=== PATIENT | female | born 1950 | race American Indian/Alaskan Native ===

== ENCOUNTER 2017-04-13 12:53 | Outpatient (CLI) | payer BC ==
--- NOTE | 2017-04-13 16:02 | Mammography Report ---
BONE DENSITY STUDY: DEFINITIONS: BMD = Bone Mineral Density T-score = BMD related to mean peak bone mass of young adult (mean expressed in Standard Deviation) Z-score = Age matched BMD expressed in SD World Health Organization (WHO) Diagnostic Criteria Normal T-score > -1 SD Osteopenia T-score between -1 and -2.4 SD Osteoporosis T-score -2.5 SD or below FINDINGS: The weighted average BMD of lumbar spine L1-L4 is 1.135 with a T-score of -0.1. The weighted average BMD of hip is 1.360 with a T-score of 2.1. IMPRESSION: The patient's T-score is diagnostic for normal bone density and low relative risk for fracture. NOTE: BMD is not the only risk factor for fracture; also consider factors such as the patient's age, risk of falling, previous osteoporotic fracture, family history of osteoporotic fractures, current smoker, and low body weight. Robertson's triangle is a region of interest in femur, predominantly of trabecular bone. It is not a true anatomic site, and [facility] does not recommend its use clinically.
--- NOTE | 2017-04-13 16:06 | Mammography Report ---
BILATERAL MAMMOGRAM with CAD: HISTORY:Cancer screening. Comparison study is dated March 30, 2016. FINDINGS: The breasts are almost entirely fat (<25% glandular). No mass, distortion, suspicious calcification, or skin change is seen. 2 nodular asymmetries in the upper-outer right breast are stable and have benign features. IMPRESSION: Negative mammogram. There is no mammographic evidence of malignancy. RECOMMENDATION: Follow-up per ACS guidelines. BI-RADS CATEGORY: 1 = Negative ACR BI-RADS MAMMOGRAPHIC CODES: 0 = Needs additional imaging evaluation; 1 = Negative; 2 = Benign; 3 = Probably benign; 4 = Suspicious; 5 = Malignant; 6 = Known biopsy-proven malignancy COMMENT: 1. Dense breast tissue, i.e., adenosis, fibrocystic changes, etc., may obscure an underlying neoplasm. 2. Approximately 10% of cancers are not detected with mammography. 3. A negative mammography report should not delay biopsy if a clinically suspicious mass is present. COMMENT: Patient follow-up letters are generated in [facility].
== END 2017-04-13 12:54 | disposition home or self-care (01) ==
LOC: SPVWC 12:53
PROVIDERS: ATTEND Internal Medicine
DX: Z12.31 Encounter for screening mammogram for malignant neoplasm of breast (principal); Z13.820 Encounter for screening for osteoporosis
CPT/HCPCS: 77080; G0202; 77067

== ENCOUNTER 2018-03-05 10:17 | Emergency (ER) | payer BC ==
[2018-03-05 10:35] VITALS: BP 139/71
[2018-03-05] MEDS ORDERED: TORADOL IM ONE (10:47)
--- NOTE | 2018-03-05 10:51 | Emergency Department Report ---
ED Fall HPI - General Chief Complaint: Fall Stated Complaint: FALL Time Seen by Provider: 03/05/18 10:46 Source: patient Mode of arrival: Ambulatory - History of Present Illness Initial Comments: Patient reports a ground level fall while walking in the hallway. She complains of right knee and lower back pain. She denies any dizziness or LOC prior to or after the fall MD Complaint: fall Onset/Timin -: minutes(s) Fall From: standing When Fall Occurred: just prior to arrival Fall Witnessed: yes, by bystander Place Fall Occurred: work Loss of Consciousness: none Prolonged Down Time?: no Symptoms Prior to Fall: none Location: back, other (right knee) Location - Extremities: Right: Knee Severity: moderate Severity scale (0 -10): 6 Quality: aching Context: tripped/slipped Associated Symptoms: denies. denies: headache, neck pain, numbness, weakness, chest paint, shortness of breath, abdominal pain, hematuria, unable to walk, lightheaded, vertigo, confusion - Related Data Home Medications Medication Instructions Recorded Confirmed Last Taken ALBUTEROL NEB's [Proventil 0.083% 10/03/15 10/03/15 NEBS] NIFEdipine [NIFEdipine ER] 10/03/15 10/03/15 ProAir HFA Inhaler 10/03/15 10/02/15 Triamterene/Hydrochlorothiazid 10/03/15 10/02/15 [Triamterene-Hctz 37.5-25 mg Tb] ZyrTEC 10/03/15 10/02/15 Previous Rx's Medication Instructions Recorded Last Taken Type Azithromycin [Zithromax Z-SOILA] 1 dose PO DAILY 5 Days tab 10/03/15 Unknown Rx Benzonatate [Tessalon Perles] 100 mg PO Q8HR PRN #20 capsule 10/03/15 Unknown Rx HYDROcodone/APAP 5-325 [[place] 1 each PO Q6HR PRN #20 tablet 10/03/15 Unknown Rx 5/325] Ibuprofen [Motrin] 600 mg PO Q8H PRN #30 tablet 10/03/15 Unknown Rx Prednisone [predniSONE 10 mg 10 mg PO .TAPER #1 tab.ds.pk 10/03/15 Unknown Rx (6-Day Pack, 21 Tabs)] Allergies Allergy/AdvReac Type Severity Reaction Status Date / Time No Known Allergies Allergy Unverified 10/03/15 09:42 ED Review of Systems ROS: Stated complaint: FALL Other details as noted in HPI Constitutional: denies: chills, fever Eyes: denies: eye pain, eye discharge, vision change ENT: denies: ear pain, throat pain Respiratory: denies: cough, shortness of breath, wheezing Cardiovascular: denies: chest pain, palpitations Endocrine: no symptoms reported Gastrointestinal: denies: abdominal pain, nausea, diarrhea Genitourinary: denies: urgency, dysuria, discharge Musculoskeletal: back pain, arthralgia (right knee). denies: joint swelling Skin: denies: rash, lesions Neurological: denies: headache, weakness, paresthesias Psychiatric: denies: anxiety, depression Hematological/Lymphatic: denies: easy bleeding, easy bruising ED Past Medical Hx - Past Medical History Hx Hypertension: Yes Hx Asthma: Yes Additional medical history: allergies - Surgical History Additional Surgical History: Ovarian cyst removed, Right foot surgery - Social History Smoking Status: Never Smoker Substance Use Type: None - Medications Home Medications: Home Medications Medication Instructions Recorded Confirmed Last Taken Type ALBUTEROL NEB's [Proventil 0.083% 10/03/15 10/03/15 History NEBS] Azithromycin [Zithromax Z-SOILA] 1 dose PO DAILY 5 Days tab 10/03/15 Unknown Rx Benzonatate [Tessalon Perles] 100 mg PO Q8HR PRN #20 capsule 10/03/15 Unknown Rx HYDROcodone/APAP 5-325 [[place] 1 each PO Q6HR PRN #20 tablet 10/03/15 Unknown Rx 5/325] Ibuprofen [Motrin] 600 mg PO Q8H PRN #30 tablet 10/03/15 Unknown Rx NIFEdipine [NIFEdipine ER] 10/03/15 10/03/15 History Prednisone [predniSONE 10 mg 10 mg PO .TAPER #1 tab.ds.pk 10/03/15 Unknown Rx (6-Day Pack, 21 Tabs)] ProAir HFA Inhaler 10/03/15 10/02/15 History Triamterene/Hydrochlorothiazid 10/03/15 10/02/15 History [Triamterene-Hctz 37.5-25 mg Tb] ZyrTEC 10/03/15 10/02/15 History ED Physical Exam - General Limitations: No Limitations General appearance: alert, in no apparent distress - Head Head exam: Present: atraumatic, normocephalic - Eye Eye exam: Present: normal appearance - Neck Neck exam: Present: normal inspection, full ROM. Absent: tenderness, meningismus, lymphadenopathy, thyromegaly - Respiratory Respiratory exam: Present: normal lung sounds bilaterally. Absent: respiratory distress, wheezes, rales, rhonchi, stridor, chest wall tenderness, accessory muscle use, decreased breath sounds, prolonged expiratory - Cardiovascular Cardiovascular Exam: Present: regular rate, normal rhythm. Absent: systolic murmur, diastolic murmur, rubs, gallop - GI/Abdominal GI/Abdominal exam: Present: soft, normal bowel sounds - Extremities Exam Extremities exam: Present: normal inspection - Expanded Lower Extremity Exam Right Hip exam: Present: normal inspection, full ROM Upper Leg exam: Present: normal inspection, full ROM Knee exam: Present: full ROM, tenderness (medial and lateral), full knee extension. Absent: swelling, abrasion, laceration, ecchymosis, deformity, crepidus, dislocation, erythema, effusion, pain w/ pronation/supination, posterior draw sign, pain/laxity with valgus, pain/laxity with varus Lower Leg exam: Present: normal inspection, full ROM Ankle exam: Present: normal inspection, full ROM Foot/Toe exam: Present: normal inspection, full ROM Neuro vascular tendon exam: Present: no vascular compromise. Absent: pulse deficit, abnormal cap refill, motor deficit, sensory deficit, tendon deficit, extremity cold to touch, pallor, abnormal 2-point discrimination, decreased fine /light touch, foot drop, peroneal nerve deficit, significant pain with passive ROM of distal joint Gait: Positive: observed and normal - Back Exam Back exam: Present: normal inspection, full ROM, tenderness (L & S spine), vertebral tenderness. Absent: CVA tenderness (R), CVA tenderness (L), muscle spasm, paraspinal tenderness, rash noted - Neurological Exam Neurological exam: Present: alert, oriented X3, CN II-XII intact, normal gait, reflexes normal. Absent: motor sensory deficit - Psychiatric Psychiatric exam: Present: normal affect, normal mood - Skin Skin exam: Present: warm, dry, intact, normal color. Absent: rash ED Course Vital Signs 03/05/18 03/05/18 10:34 10:54 Temperature 97.7 F Pulse Rate 69 Respiratory 17 18 Rate Blood Pressure 139/71 [Left] O2 Sat by Pulse 97 Oximetry - Reevaluation(s) Reevaluation #1: 03/05/18 10:52 analgesic and imaging studies ordered ED Medical Decision Making - Lab Data Vital Signs 03/05/18 03/05/18 10:34 10:54 Temperature 97.7 F Pulse Rate 69 Respiratory 17 18 Rate Blood Pressure 139/71 [Left] O2 Sat by Pulse 97 Oximetry - Radiology Data Radiology results: image reviewed LUMBOSACRAL SPINE, 3 VIEWS: History: Fall Findings: The vertebral bodies, disk spaces and posterior elements are intact. No compression deformity or malalignment. Multilevel degenerative changes are noted. The SI joints are symmetric and unremarkable. Impression: Lumbar spondylosis. RIGHT KNEE, 3 views: History: Fall. The bony architecture is intact without evidence of fracture or dislocation. Osteoarthritis is noted. No significant soft tissue abnormality is seen. IMPRESSION: Osteoarthritis. - Medical Decision Making During the course of ED, Toradol injection and radiology studies were ordered. The imaging studies revealed lumbar spondylosis and right knee osteoarthritis. The patient reports adequate pain control after medication was given in the ED. She was sent home with instruction to take over the counter Ibuprofen 600 mg as directed for pain and follow up with the selective referral given at discharge, she verbalized understanding - Differential Diagnosis Fall, Right Knee Pain, Low Back Pain Critical care attestation.: If time is entered above; I have spent that time in minutes in the direct care of this critically ill patient, excluding procedure time. ED Disposition Clinical Impression: Fall Qualifiers: Encounter type: initial encounter Qualified Code(s): W19.XXXA - Unspecified fall, initial encounter Knee pain, right Qualifiers: Chronicity: acute Qualified Code(s): M25.561 - Pain in right knee Back pain Qualifiers: Back pain location: low back pain Chronicity: acute Back pain laterality: midline Sciatica presence: without sciatica Qualified Code(s): M54.5 - Low back pain Disposition: - TO HOME OR SELFCARE Is pt being admited?: No Does the pt Need Aspirin: No Condition: Stable Instructions: Arthralgia (ED), Back Pain (ED) Additional Instructions: Follow up with the selective referral given at discharge. Return back to the ED for worsening symptoms Referrals: PRIMARY CAREMD [Primary Care Provider] - 3-5 Days SURINDER HOLCOMB MD [Staff Physician] - 3-5 Days Forms: Work/School Release Form(ED) Time of Disposition: 12:57
--- NOTE | 2018-03-06 07:51 | XRay Report ---
LUMBOSACRAL SPINE, 3 VIEWS: History: Fall Findings: The vertebral bodies, disk spaces and posterior elements are intact. No compression deformity or malalignment. Multilevel degenerative changes are noted. The SI joints are symmetric and unremarkable. Impression: Lumbar spondylosis.
--- NOTE | 2018-03-06 07:51 | XRay Report ---
RIGHT KNEE, 3 views: History: Fall. The bony architecture is intact without evidence of fracture or dislocation. Osteoarthritis is noted. No significant soft tissue abnormality is seen. IMPRESSION: Osteoarthritis.
== END 2018-03-05 13:04 | disposition home or self-care (01) ==
LOC: ED 10:17
DX: M25.561 Pain in right knee (principal); M54.5 Low back pain; I10 Essential (primary) hypertension; J45.909 Unspecified asthma, uncomplicated; W01.0XXA Fall on same level from slipping, tripping and stumbling without subsequent striking against object, initial encounter; Y93.89 Activity, other specified; Y92.89 Other specified places as the place of occurrence of the external cause; Y99.8 Other external cause status
CPT/HCPCS: 72100; 73562; 96372; 99283; J1885

== ENCOUNTER 2018-11-08 07:05 | Day surgery (SDC) | payer BC ==
[~2018-11-08 07:05] MED LIST: DEPO-Medrol INTRA-ARTI ONE; MARCAINE 0.5% INFILTRATI ONE; XYLOCAINE 2% INFILTRATI ONE
[2018-11-08] MEDS ORDERED: DEPO-Medrol ONE (07:16)
[2018-11-08] MEDS ORDERED: XYLOCAINE 1% 20 mL ONE (07:16)
[2018-11-08] MEDS ORDERED: MARCAINE 0.5% INFILTRATI ONE ×3 (07:17→08:19)
[2018-11-08] MEDS ORDERED: MARCAINE 0.25% INFILTRATI ONE (07:19)
[2018-11-08 08:06] VITALS: BP 162/79
[2018-11-08] MEDS ORDERED: XYLOCAINE 2% INFILTRATI ONE (08:19)
--- NOTE | 2018-11-08 17:30 | Procedure Note ---
Date of procedure: 11/08/18 Pre-op diagnosis: right knee pain Post-op diagnosis: same Procedure: Right Geniculate Nerve Block under C-arm fluroscopy procedure The patient taken to the radiology fluroscopy suite where he was place on the table supine with padded triangular pad placed along the potileal fossa. The right knee prepped and draped in usual sterile fashion. 22-gauge spinal needle used to locate areas for injection, the medial and lateral supracondylar ridges as well as the medial border of the proximal tibia. These areas were anesthized using lidocaine 1% followed by placement of spinal needle near the medial, and lateral geniculate nerves. A mixture of marcaine and lidocaine injected into the deeper structures. There were no complications noted and he tolerated well. Anesthesia: local Surgeon: SURINDER HOLCOMB Estimated blood loss: none Pathology: none Condition: stable Disposition: observation
--- NOTE | 2018-11-09 07:31 | XRay Report ---
RIGHT KNEE, 2 VIEWS History: Right knee pain. Findings: Fluoroscopy was provided by radiology during an orthopedic procedure. 6 images of the right knee are presented demonstrating needle placement for injection. The bony structures are intact. Mild degenerative changes are suspected in the medial compartment and patellofemoral space. No bony lesion or fracture. Please correlate with the procedural report as needed. Impression: Needle placement for injection. Mild osteoarthritis.
== END 2018-11-08 08:40 | disposition home or self-care (01) ==
LOC: OR 07:05
PROVIDERS: ATTEND Orthopaedic Surgery
DX: M17.11 Unilateral primary osteoarthritis, right knee (principal); I10 Essential (primary) hypertension; K21.9 Gastro-esophageal reflux disease without esophagitis; Z79.899 Other long term (current) drug therapy; Z87.891 Personal history of nicotine dependence; Z98.49 Cataract extraction status, unspecified eye; Z72.89 Other problems related to lifestyle; Z98.890 Other specified postprocedural states
CPT/HCPCS: 64450; 73560; J1030

== ENCOUNTER 2019-01-17 07:37 | Day surgery (SDC) | payer BC, MEDICARE ==
[~2019-01-17 07:37] MED LIST changes: -DEPO-Medrol INTRA-ARTI ONE; +DEPO-Medrol ONE; +XYLOCAINE 1% 20 mL ONE; -XYLOCAINE 2% INFILTRATI ONE
--- NOTE | 2019-01-17 08:51 | Anesthesia Day of Surgery ---
Anesthesia Day of Surgery - Day of Surgery Patient Examined: Yes Patient H&P Reviewed: Yes Patient is NPO: Yes
--- NOTE | 2019-01-17 08:53 | Anesthesia Consultation ---
Anesthesia Consult and Med Hx Date of service: 01/17/19 - Airway Anesthetic Teeth Evaluation: Good ROM Head & Neck: Adequate Mental/Hyoid Distance: Adequate Mallampati Class: Class II Intubation Access Assessment: Good - Pre-Operative Health Status ASA Pre-Surgery Classification: ASA2 Proposed Anesthetic Plan: General (MAC; GA if needed), MAC - Pulmonary Hx Smoking: Yes (STOPPED 1992) Hx Asthma: Yes (INHALER PRN) Hx Sleep Apnea: No (RAMIREZ PRE SCREEN HIGH RISK) - Cardiovascular System Hx Hypertension: Yes - Central Nervous System Hx Back Pain: Yes Hx Psychiatric Problems: No - Gastrointestinal Hx Gastroesophageal Reflux Disease: Yes (Dietary-occasional; no RX) - Other Systems Hx Alcohol Use: Yes (OCC MIXED DRINK) Hx Cancer: No
[2019-01-17] MEDS ORDERED: LACTATED RINGERS 1,000 ML IV SCH (09:00)
[2019-01-17] MEDS ORDERED: LACTATED RINGERS 1,000 ML ONE (09:22)
[2019-01-17] MEDS ORDERED: SUBLIMAZE IV PRN (09:30)
[2019-01-17] MEDS ORDERED: ZOFRAN IV PRN (09:30)
[2019-01-17] MEDS ORDERED: DILAUDID ONE (09:54)
[2019-01-17] MEDS ORDERED: XYLOCAINE MPF 2% ONE (09:54)
[2019-01-17] MEDS ORDERED: VERSED ONE (09:54)
[2019-01-17] MEDS ORDERED: DIPRIVAN 10 MG/ML IV ONE ×2 (09:54→10:30)
[2019-01-17] MEDS ORDERED: DEPO-Medrol INTRA-ARTI ONE (10:10)
[2019-01-17] MEDS ORDERED: XYLOCAINE 1% 20 mL INFILTRATI ONE (10:10)
[2019-01-17] MEDS ORDERED: MARCAINE 0.5% INFILTRATI ONE (10:10)
--- NOTE | 2019-01-17 10:43 | Procedure Note ---
Date of procedure: 01/17/19 Pre-op diagnosis: chronic right knee pain Post-op diagnosis: same Procedure: Geniculate nerve radiofrequency ablation right knee Procedure The patient was brought to the OR and placed in the OR table supine position patient was Given IV fall and was masked the procedure following this the patient's right knee was prepped and draped in the routine sterile manner. A timeout procedure was done to identify the patient and the correct operative site. Under C-arm visualization the skin was anesthetized with the 1% lidocaine at both the medial and lateral suprapatellar regions as well as the proximal portion of the medial tibial metaphysis. Following this the the introducers radiofrequency ablation introducer probes were inserted into the distal femoral metaphysis close to the bone and midway along the sagittal plane as well as along the proximal tibial metaphysis to be appropriate place simultaneously following this following this the probe were checked for full motor nerve function there did not appear to be any next the radiofrequency ablator was turned on and the nerves were ablated to a temperature of 60C for approximately 2-1/2 minutes each. A mixture of Depo-Medrol and lidocaine was then injected into each location to help with postoperative pain and inflammation. The patient tolerated the procedure there were no complications he was then taken to postanesthesia recovery in a stable condition. Surgeon: SURINDER HOLCOMB Estimated blood loss: minimal Pathology: none Condition: stable Disposition: PACU
[2019-01-17] MEDS ORDERED: PROVENTIL IH ONE (11:04)
[2019-01-17] MEDS ORDERED: PROVENTIL IH PRN (12:00)
[2019-01-17 12:21] VITALS: BP 143/73
--- NOTE | 2019-01-17 13:25 | Post Anesthesia Evaluation ---
- Post Anesthesia Evaluation Patient Participated: Yes Airway Patent: Yes Stable Respiratory Function: Yes Nausea/Vomiting: No Temp > 96.8F: Yes Pain Manageable: Yes Adequeate Hydration: Yes Anesthesia Complications: No Block Receding Appropriately: Not Applicable Patient on Ventilator: No
--- NOTE | 2019-01-17 15:59 | XRay Report ---
XR knee 1-2V RT INDICATION / CLINICAL INFORMATION: RT KNEE PAIN. INTRAOPERATIVE. COMPARISON: None available. FINDINGS: There are 3 metallic needles overlying the distal femoral metaphysis laterally, medially and anterior ly. A single metallic needle overlies the proximal tibial metaphysis medially. There are mild degener ative changes. Fluoroscopy time: 12 seconds. Fluoroscopic images: 2. Signer Name: Devang Rouse MD Signed: 01/17/2019 3:55 PM Workstation Name: [id number]
== END 2019-01-17 07:38 | disposition home or self-care (01) ==
LOC: OR 07:37
PROVIDERS: ATTEND Orthopaedic Surgery
DX: M17.11 Unilateral primary osteoarthritis, right knee (principal); I10 Essential (primary) hypertension; J45.909 Unspecified asthma, uncomplicated; K21.9 Gastro-esophageal reflux disease without esophagitis; Z98.890 Other specified postprocedural states; Z87.891 Personal history of nicotine dependence; Z79.899 Other long term (current) drug therapy; Z98.42 Cataract extraction status, left eye; Z72.89 Other problems related to lifestyle; Z86.2 Personal history of diseases of the blood and blood-forming organs and certain disorders involving the immune mechanism
CPT/HCPCS: 36415; 64640; 73560; 84132; A4649; J1030; J1170; J2250; J2704; J3010; J7120

== ENCOUNTER 2019-04-24 13:56 | Outpatient (CLI) | payer BC, MEDICARE ==
--- NOTE | 2019-04-24 16:58 | XRay Report ---
Views of the right knee INDICATION / CLINICAL INFORMATION: PAIN IN RIGHT KNEE. COMPARISON: None available. FINDINGS: BONES/JOINT(S): No acute fracture or subluxation. Moderate tricompartmental DJD with joint space loss and marginal osteophyte formation. Moderate joint effusion. SOFT TISSUES: No significant abnormality. ADDITIONAL FINDINGS: None. Signer Name: Anselmo Stanford MD Signed: 04/24/2019 4:54 PM Workstation Name: [id number]
--- NOTE | 2019-04-25 11:05 | Mammography Report ---
DIGITAL SCREENING MAMMOGRAM WITH CAD, 04/24/2019 INDICATION: Routine screening mammography. TECHNIQUE: Digital bilateral 2D mammography was obtained in the craniocaudal and mediolateral obliq ue projections. This examination was interpreted with the benefit of Computer-Aided Detection analysi s. COMPARISON: 04/25/2018 FINDINGS: Breast Density: The breasts are almost entirely fatty. There is no evidence of dominant mass, suspicious calcifications or architectural distortion in eithe r breast. IMPRESSION: No mammographic evidence of malignancy. Follow up recommendation: Routine yearly BI-RADS Category 1: Negative. A "normal" or negative report should not discourage follow up or biopsy of a clinically significant f inding. A written summary of these findings will be mailed to the patient. The patient will be entered into a mammography reporting system which will generate a reminder letter for the patient's next appointmen t at the appropriate interval. The [employer] recommends yearly mammograms starting at age 40 and continuing as l quentin as a woman is in good health. Breast MRI is recommended for women with an approximate 20-25% or greater lifetime risk of breast cancer, including women with a strong family history of breast or ova andreia cancer or who have been treated for Hodgkin's disease. Signer Name: Meir Hernandez MD Signed: 04/25/2019 11:01 AM Workstation Name: [id number]
== END 2019-04-24 13:57 | disposition home or self-care (01) ==
LOC: MAMMO 13:56 → XRAY 13:56
PROVIDERS: ATTEND Orthopaedic Surgery
DX: M17.11 Unilateral primary osteoarthritis, right knee (principal); M25.761 Osteophyte, right knee; Z12.31 Encounter for screening mammogram for malignant neoplasm of breast; I10 Essential (primary) hypertension; J45.909 Unspecified asthma, uncomplicated; K21.9 Gastro-esophageal reflux disease without esophagitis; M19.90 Unspecified osteoarthritis, unspecified site; Z87.891 Personal history of nicotine dependence; Z98.890 Other specified postprocedural states; Z90.721 Acquired absence of ovaries, unilateral
CPT/HCPCS: 77067

== ENCOUNTER 2019-07-02 15:01 | Emergency (ER) | payer BC, MEDICARE ==
[2019-07-02] MEDS ORDERED: ALBUTEROL 2.5 MG/3 ML NEBU IH ONE (15:09)
[2019-07-02] MEDS ORDERED: predniSONE 20 MG TAB PO ONE (15:09)
--- NOTE | 2019-07-02 15:09 | Emergency Department Report ---
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 VSS. ED Review of Systems ROS: Stated complaint: NHAN Other details as noted in HPI Comment: All other systems reviewed and negative ED Past Medical Hx - Past Medical History Previous Medical History?: Yes Hx Hypertension: Yes Hx GERD: Yes Hx Arthritis: ([place]ICA KNEES) Hx Asthma: Yes (INHALER PRN) Hx HIV: No Additional medical history: allergies - Surgical History Past Surgical History?: Yes Additional Surgical History: Ovarian cyst removed, Right foot surgery - Family History Family history: no significant - Social History Smoking Status: Former Smoker - Medications Home Medications: Home Medications Medication Instructions Recorded Confirmed Last Taken Type ALBUTEROL NEB's [Proventil 0.083% 1 dose INHALATION PRN PRN 10/03/15 01/17/19 01/16/19 21:00 History NEBS] NIFEdipine [NIFEdipine ER] 90 mg PO DAILY 10/03/15 01/17/19 01/17/19 09:00 History ProAir HFA Inhaler 2 puff INHALATION PRN PRN 10/03/15 01/08/19 10/02/15 History Cetirizine HCl [ZyrTEC 10mg cap] 10 mg PO DAILY 11/05/18 01/17/19 01/16/19 09:00 History Ibuprofen [Motrin] 800 mg PO PRN PRN 11/05/18 01/17/19 01/14/19 09:00 History Triamterene [Dyrenium] 50 mg PO DAILY 11/05/18 01/17/19 01/16/19 09:00 History HYDROcodone/APAP 7.5-325 [[place] 1 each PO Q6HR PRN #15 tablet 01/17/19 Unknown Rx 7.5-325 mg TAB] predniSONE [Deltasone] 20 mg PO DAILY #5 tablet 07/02/19 Unknown Rx Minor Respiratory Exam - Exam General: Vital signs noted. No distress. Alert and acting appropriately. HEENT: Yes Moist Mucous Membranes, No Pharyngeal Erythema, No Pharyngeal Exudates, No Rhinorrhea, No Conjuctival Injection, No Frontal Tenderness, No Maxillary Tenderness Ear: Neither TM Bulge, Neither TM Erythema, Neither EAC Pain, Neither EAC Discharge Neck: Yes Supple, No Adenopathy Lungs: Yes Good Air Exchange, Yes Wheezes, No Ronchi, No Stridor, No Cough, No Labored Respirations, No Retractions, No Use of Accessory Muscles, No Other Abnormal Lung Sounds Heart: Yes Regular, No Murmur Abdomen: Yes Normal Bowel Sounds, No Tenderness, No Peritoneal Signs Skin: No Rash, No Edema Neurologic: Alert and oriented, no deficits. Musculoskeletal: Unremarkable. ED Medical Decision Making - Medical Decision Making DUONEB AND PREDNISONE WITH CLEARING OF WHEEZING PT AMBULATORY WO SOB P RT DC HOME Vital Signs 07/02/19 15:08 Temperature 98.8 F Pulse Rate 104 H Respiratory 20 Rate Blood Pressure 166/78 O2 Sat by Pulse 95 Oximetry Critical care attestation.: If time is entered above; I have spent that time in minutes in the direct care of this critically ill patient, excluding procedure time. ED Disposition Clinical Impression: Asthma with acute exacerbation Disposition: DC-01 TO HOME OR SELFCARE Is pt being admited?: No Does the pt Need Aspirin: No Condition: Stable Instructions: Asthma (ED) Prescriptions: predniSONE [Deltasone] 20 mg PO DAILY #5 tablet Time of Disposition: 15:45
[2019-07-02 15:11] VITALS: BP 166/78
== END 2019-07-03 16:50 | disposition home or self-care (01) ==
LOC: ED 15:01
DX: J45.901 Unspecified asthma with (acute) exacerbation (principal); I10 Essential (primary) hypertension; K21.9 Gastro-esophageal reflux disease without esophagitis
CPT/HCPCS: 99282; J7512

== ENCOUNTER 2020-03-21 11:05 | Emergency (ER) | payer BC, MEDICARE ==
[2020-03-21] MEDS ORDERED: ALBUTEROL 2.5 MG/3 ML NEBU IH ONE (11:13)
[2020-03-21] MEDS ORDERED: methylPREDNISolone Sod Succinate 125 MG/2 ML INJ IV ONE (11:13)
[2020-03-21] MEDS ORDERED: ONDANSETRON 4 MG/2 ML INJ IV ONE (11:13)
[2020-03-21] MEDS ORDERED: IPRATROPIUM 0.02% NEBU 2.5 ML IH ONE (11:13)
[2020-03-21 11:34] LABS: Basophils % (Auto) 0.4 % (0.0-1.8); Eosinophils # (Auto) 0.1 K/mm3 (0.0-0.4); Eosinophils % (Auto) 2.3 % (0.0-4.3); Hematocrit 38.3 % (30.3-42.9); Hemoglobin 12.3 gm/dl (10.1-14.3); Lymphocytes # (Auto) 1.8 K/mm3 (1.2-5.4); Lymphocytes % (Auto) 28.2 % (13.4-35.0); Mean Corpuscular HGB Conc 32 % (30-34); Mean Corpuscular Volume 86 fl (79-97); Monocytes # (Auto) 0.6 K/mm3 (0.0-0.8); Monocytes % (Auto) 9.6 % (0.0-7.3); Platelet Count 202 K/mm3 (140-440); Red Blood Count 4.45 M/mm3 (3.65-5.03)
--- NOTE | 2020-03-21 11:50 | Emergency Department Report ---
ED Asthma HPI - General Chief Complaint: Adult Asthma Stated Complaint: NHAN Time Seen by Provider: 03/21/20 11:13 Source: patient Mode of arrival: Ambulatory Limitations: No Limitations - History of Present Illness Initial Comments: Patient is a 69-year-old F [place] female past medical history of hypertension and asthma who is presenting with asthma exacerbation. 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 She was given a bag elbow patients that needed to be locked up and are safe because it contained a weapon and drugs and she smells fumes which caused bronchospasm. Patient began to cough and had some wheezing. Patient was very short of breath and decided to check into the emergency department. Patient is denying any recent fevers chills nausea vomiting diarrhea body aches. - Related Data Home Medications Medication Instructions Recorded Confirmed Last Taken ALBUTEROL NEB's [Proventil 0.083% 1 dose INHALATION PRN PRN 10/03/15 01/17/19 01/16/19 21:00 NEBS] NIFEdipine [NIFEdipine ER] 90 mg PO DAILY 10/03/15 01/17/19 01/17/19 09:00 ProAir HFA Inhaler 2 puff INHALATION PRN PRN 10/03/15 01/08/19 10/02/15 Cetirizine HCl [ZyrTEC 10mg cap] 10 mg PO DAILY 11/05/18 01/17/19 01/16/19 09:00 Ibuprofen [Motrin] 800 mg PO PRN PRN 11/05/18 01/17/19 01/14/19 09:00 Triamterene [Dyrenium] 50 mg PO DAILY 11/05/18 01/17/19 01/16/19 09:00 Previous Rx's Medication Instructions Recorded Last Taken Type HYDROcodone/APAP 7.5-325 [[place] 1 each PO Q6HR PRN #15 tablet 01/17/19 Unknown Rx 7.5-325 mg TAB] predniSONE [Deltasone] 20 mg PO DAILY #5 tablet 07/02/19 Unknown Rx predniSONE [Deltasone] 20 mg PO QDAY #5 tab 03/21/20 Unknown Rx Allergies Allergy/AdvReac Type Severity Reaction Status Date / Time No Known Allergies Allergy Verified 11/05/18 12:22 ED Review of Systems ROS: Stated complaint: NHAN Other details as noted in HPI Comment: All other systems reviewed and negative ED Past Medical Hx - Past Medical History Hx Hypertension: Yes Hx GERD: Yes Hx Arthritis: (ERICA KNEES) Hx Asthma: Yes (INHALER PRN) Hx HIV: No Additional medical history: allergies - Surgical History Additional Surgical History: Ovarian cyst removed, Right foot surgery - Social History Smoking Status: Former Smoker - Medications Home Medications: Home Medications Medication Instructions Recorded Confirmed Last Taken Type ALBUTEROL NEB's [Proventil 0.083% 1 dose INHALATION PRN PRN 10/03/15 01/17/19 01/16/19 21:00 History NEBS] NIFEdipine [NIFEdipine ER] 90 mg PO DAILY 10/03/15 01/17/19 01/17/19 09:00 History ProAir HFA Inhaler 2 puff INHALATION PRN PRN 10/03/15 01/08/19 10/02/15 History Cetirizine HCl [ZyrTEC 10mg cap] 10 mg PO DAILY 11/05/18 01/17/19 01/16/19 09:00 History Ibuprofen [Motrin] 800 mg PO PRN PRN 11/05/18 01/17/19 01/14/19 09:00 History Triamterene [Dyrenium] 50 mg PO DAILY 11/05/18 01/17/19 01/16/19 09:00 History HYDROcodone/APAP 7.5-325 [[place] 1 each PO Q6HR PRN #15 tablet 01/17/19 Unknown Rx 7.5-325 mg TAB] predniSONE [Deltasone] 20 mg PO DAILY #5 tablet 07/02/19 Unknown Rx predniSONE [Deltasone] 20 mg PO QDAY #5 tab 03/21/20 Unknown Rx ED Physical Exam - General Limitations: No Limitations General appearance: alert, anxious, in distress - Head Head exam: Present: atraumatic, normocephalic - Eye Eye exam: Present: normal appearance, PERRL, EOMI - ENT ENT exam: Present: mucous membranes moist - Neck Neck exam: Present: normal inspection - Respiratory Respiratory exam: Present: respiratory distress, wheezes, decreased breath sounds. Absent: normal lung sounds bilaterally, rales, rhonchi - Cardiovascular Cardiovascular Exam: Present: regular rate, normal rhythm, normal heart sounds. Absent: systolic murmur, diastolic murmur, rubs, gallop - GI/Abdominal GI/Abdominal exam: Present: soft, normal bowel sounds. Absent: distended, tenderness, guarding, rebound - Extremities Exam Extremities exam: Present: normal inspection - Back Exam Back exam: Present: normal inspection - Neurological Exam Neurological exam: Present: alert, oriented X3 - Psychiatric Psychiatric exam: Present: normal affect, normal mood - Skin Skin exam: Present: warm, dry, intact, normal color. Absent: rash ED Medical Decision Making - Lab Data Result diagrams: 03/21/20 11:21 - Medical Decision Making Patient received neb treatment steroids and after neb treatment ended patient was feeling much improved. Lungs are clear she is moving air well. Patient is opting to return back to work as well. Patient be discharged in stable condition. She has albuterol at home will also be started on a short course of prednisone. Critical care attestation.: If time is entered above; I have spent that time in minutes in the direct care of this critically ill patient, excluding procedure time. ED Disposition Clinical Impression: Asthma exacerbation Qualifiers: Asthma severity: moderate Asthma persistence: unspecified Qualified Code(s): J45.901 - Unspecified asthma with (acute) exacerbation Disposition: - TO HOME OR SELFCARE Is pt being admited?: No Does the pt Need Aspirin: No Condition: Stable Instructions: Asthma (ED) Referrals: PRIMARY CARE, [Primary Care Provider] - 3-5 Days Time of Disposition: 11:48
[2020-03-21 11:57] LABS: Blood Urea Nitrogen 11 mg/dL (7-17); Calcium 9.4 mg/dL (8.4-10.2); Hemolysis Index 2
[2020-03-21 12:34] LABS: BUN/Creatinine Ratio 16
== END 2020-03-21 12:04 | disposition home or self-care (01) ==
LOC: ED 11:05
DX: J45.901 Unspecified asthma with (acute) exacerbation (principal); I10 Essential (primary) hypertension; K21.9 Gastro-esophageal reflux disease without esophagitis; M17.0 Bilateral primary osteoarthritis of knee; Z87.891 Personal history of nicotine dependence; Z98.890 Other specified postprocedural states; Z79.899 Other long term (current) drug therapy
CPT/HCPCS: 36415; 80048; 85025; 96374; 96375; 99283; J2405; J2930

== ENCOUNTER 2021-01-19 16:35 | Inpatient (IN) | payer BC, MEDICARE ==
--- NOTE | 2021-01-19 17:38 | Emergency Department Report ---
ED Neuro Deficit HPI - General Chief Complaint: Neuro Symptoms/Deficit Stated Complaint: BALANCE ISSUES Time Seen by Provider: 01/19/21 17:04 Source: patient Mode of arrival: Ambulatory Limitations: No Limitations - History of Present Illness Initial Comments: 70-year-old female with a past medical history of asthma, GERD, hypertension presents to the hospital complaints of unsteady gait x6 days. Patient was sent by her neurologist for evaluation. Patient symptoms overall started on January 03 while out of town in [place]. She had a sudden onset of spinning sensation while in the shower without nausea or vomiting. She then had unsteady gait. She was worked up in the ER with CT head, labs, EKG and admission was advised. Patient elected to come back to [place] where her physicians were located. Patient was seen by her primary care doctor the next day and prescribed meclizine. Patient has taken meclizine but states that her dizziness only occurred during the shower episode and her ataxia/unsteady gait have resolved prior to initiating the medication. Since seeing her PMD she also has been seen by neurologist x2 as well as an ENT physician. She was told that her ear nose and throat exam were normal and is being scheduled for an inner ear balance test. For the past 6 days however, patient has had repeated unsteady gait and feel like she is going to fall while ambulating. For the past 4 days she has had right face, right arm, right leg numbness, cold feeling, and paresthesias that is slightly improved today. She continues to deny spinning sensation. An outpatient MRI was ordered by her neurologist last week however, patient never received a call to schedule the test. Upon reevaluation per her neurologist today it was noted that she had worse unsteady gait and was therefore referred to the ED for evaluation. Patient denies headache, chest pain, blurry vision, shortness of breath, or focal weakness. Patient did take aspirin 81 mg today but otherwise does not take aspirin daily. PMD:Dr Patrick - Related Data Home Medications: Home Medications Medication Instructions Recorded Confirmed Last Taken ALBUTEROL NEB's [Proventil 0.083% 1 dose INHALATION PRN PRN 10/03/15 01/21/21 01/16/19 21:00 NEBS] NIFEdipine [NIFEdipine ER] 90 mg PO DAILY 10/03/15 01/21/21 01/20/21 ProAir HFA Inhaler 2 puff INHALATION PRN PRN 10/03/15 01/21/21 10/02/15 Cetirizine HCl [ZyrTEC 10mg cap] 10 mg PO DAILY 11/05/18 01/21/21 01/20/21 Triamterene [Dyrenium] 50 mg PO DAILY 11/05/18 01/21/21 01/16/19 09:00 Previous Rx's Medication Instructions Recorded Last Taken Type Cyclobenzaprine [Flexeril 10 MG 10 mg PO TID PRN #10 tablet 11/18/20 Unknown Rx TAB] predniSONE [Deltasone] 20 mg PO DAILY #5 tablet 11/18/20 Unknown Rx Aspirin 325 mg PO QDAY #30 tablet 01/22/21 Unknown Rx AtorvaSTATin [Lipitor] 40 mg PO QHS #30 tablet 01/22/21 Unknown Rx Allergies/Adverse Reactions: Allergies Allergy/AdvReac Type Severity Reaction Status Date / Time No Known Allergies Allergy Verified 11/05/18 12:22 ED Review of Systems ROS: Stated complaint: BALANCE ISSUES Other details as noted in HPI Comment: All other systems reviewed and negative ED Past Medical Hx - Past Medical History Previous Medical History?: Yes Hx Hypertension: Yes Hx GERD: Yes Hx Arthritis: (ERICA KNEES) Hx Asthma: Yes (INHALER PRN) Hx HIV: No Additional medical history: allergies - Surgical History Past Surgical History?: Yes Additional Surgical History: Ovarian cyst removed, Right foot surgery - Social History Smoking Status: Former Smoker - Medications Home Medications: Home Medications Medication Instructions Recorded Confirmed Last Taken Type ALBUTEROL NEB's [Proventil 0.083% 1 dose INHALATION PRN PRN 10/03/15 01/21/21 01/16/19 21:00 History NEBS] NIFEdipine [NIFEdipine ER] 90 mg PO DAILY 10/03/15 01/21/21 01/20/21 History ProAir HFA Inhaler 2 puff INHALATION PRN PRN 10/03/15 01/21/21 10/02/15 History Cetirizine HCl [ZyrTEC 10mg cap] 10 mg PO DAILY 11/05/18 01/21/21 01/20/21 History Triamterene [Dyrenium] 50 mg PO DAILY 11/05/18 01/21/21 01/16/19 09:00 History Cyclobenzaprine [Flexeril 10 MG 10 mg PO TID PRN #10 tablet 11/18/20 01/21/21 Unknown Rx TAB] predniSONE [Deltasone] 20 mg PO DAILY #5 tablet 11/18/20 01/21/21 Unknown Rx Aspirin 325 mg PO QDAY #30 tablet 01/22/21 Unknown Rx AtorvaSTATin [Lipitor] 40 mg PO QHS #30 tablet 01/22/21 Unknown Rx ED Neuro Physical Exam - General Limitations: No Limitations Suspected Stroke: Yes - NIHSS Assessment Interval: Baseline 1a. Level of Consciousness: alert/keenly responsive 1b. LOC Questions: answers both correctly 1c. LOC Commands: performs tasks correctly 2. Best Gaze: normal 3. Visual: no visual loss 4. Facial Palsy: normal symmetrical movement 5b. Motor Arm Right: no drift 5a. Motor Arm Left: no drift 6a. Motor Leg Left: no drift 6b. Motor Leg Right: no drift 7. Limb Ataxia: absent 8. Sensory: normal 9. Best Language: no aphasia 10. Dysarthria: normal 11. Extinction/Inattention: no abnormality Total Score: 0 Stroke Severity: No Stroke Symptoms - Other Other exam information: General: No acute distress Head: Atraumatic Eyes: normal appearance, no nystagmus, pupils equal reactive to light ENT: Moist mucous membranes Neck: Normal appearance, no midline tenderness Chest: Clear to auscultation bilaterally CV: Regular rate and rhythm Abdomen: Soft, normal bowel sounds, nontender, nondistended, no rebound or guarding Back: Normal inspection Extremity: Normal inspection, full range of motion Neuro: Alert O x 3, no facial asymmetry, speech clear, no gross motor sensory deficit. Unsteady gait. Small clumsy steps, requiring intermittent support however not following to one particular falling to one particular side Psych: Appropriate behavior Skin: No rash ED Course Vital Signs 01/19/21 01/19/21 01/19/21 16:53 18:15 19:46 Temperature 98 F Pulse Rate 86 Pulse Rate [ 72 Bilateral] Respiratory 18 Rate Respiratory 20 Rate [Bilateral ] Blood Pressure Blood Pressure 168/92 [Right] O2 Sat by Pulse 98 95 Oximetry 01/20/21 01/20/21 01/20/21 05:26 05:31 06:01 Temperature Pulse Rate 62 61 Pulse Rate [ Bilateral] Respiratory 19 12 Rate Respiratory Rate [Bilateral ] Blood Pressure 128/62 Blood Pressure 120/61 [Right] O2 Sat by Pulse 99 98 93 Oximetry 01/20/21 01/20/21 01/20/21 06:31 07:01 07:31 Temperature Pulse Rate 62 60 62 Pulse Rate [ Bilateral] Respiratory 9 L 11 L 11 L Rate Respiratory Rate [Bilateral ] Blood Pressure 128/62 127/61 127/61 Blood Pressure [Right] O2 Sat by Pulse 99 100 97 Oximetry 01/20/21 01/20/21 01/20/21 07:43 08:01 09:01 Temperature 98 F Pulse Rate 80 62 82 Pulse Rate [ Bilateral] Respiratory 16 16 20 Rate Respiratory Rate [Bilateral ] Blood Pressure 130/64 116/64 131/65 Blood Pressure [Right] O2 Sat by Pulse 100 95 98 Oximetry 01/20/21 01/20/21 01/20/21 09:31 10:01 10:31 Temperature Pulse Rate 85 80 75 Pulse Rate [ Bilateral] Respiratory 17 32 H 16 Rate Respiratory Rate [Bilateral ] Blood Pressure 131/65 136/65 136/65 Blood Pressure [Right] O2 Sat by Pulse 100 98 98 Oximetry 01/20/21 01/20/21 01/20/21 15:31 16:01 16:31 Temperature Pulse Rate 80 74 75 Pulse Rate [ Bilateral] Respiratory 18 13 15 Rate Respiratory Rate [Bilateral ] Blood Pressure 141/84 137/67 141/84 Blood Pressure [Right] O2 Sat by Pulse 99 100 100 Oximetry 01/20/21 01/20/21 01/20/21 17:01 18:01 18:31 Temperature Pulse Rate 80 Pulse Rate [ Bilateral] Respiratory 13 Rate Respiratory Rate [Bilateral ] Blood Pressure 131/57 139/67 139/67 Blood Pressure [Right] O2 Sat by Pulse 100 99 100 Oximetry 01/20/21 01/20/21 01/20/21 19:01 19:31 19:40 Temperature Pulse Rate Pulse Rate [ Bilateral] Respiratory 16 Rate Respiratory Rate [Bilateral ] Blood Pressure 153/121 153/121 Blood Pressure [Right] O2 Sat by Pulse 91 97 100 Oximetry 01/20/21 01/20/21 01/20/21 20:01 20:31 21:01 Temperature Pulse Rate Pulse Rate [ Bilateral] Respiratory Rate Respiratory Rate [Bilateral ] Blood Pressure 143/63 143/63 128/66 Blood Pressure [Right] O2 Sat by Pulse 98 86 95 Oximetry 01/20/21 21:27 Temperature 98.7 F Pulse Rate 79 Pulse Rate [ Bilateral] Respiratory 16 Rate Respiratory Rate [Bilateral ] Blood Pressure 141/68 Blood Pressure [Right] O2 Sat by Pulse 98 Oximetry - Lab Data Result diagrams: 01/20/21 05:08 01/21/21 05:55 Lab Results 01/19/21 01/19/21 01/19/21 Range/Units 18:02 18:02 18:02 WBC 7.0 (4.5-11.0) K/mm3 RBC 4.46 (3.65-5.03) M/mm3 Hgb 12.4 (10.1-14.3) gm/dl Hct 38.5 (30.3-42.9) % MCV 86 (79-97) fl MCH 28 (28-32) pg MCHC 32 (30-34) % RDW 14.3 (13.2-15.2) % Plt Count 212 (140-440) K/mm3 Lymph % (Auto) 28.7 (13.4-35.0) % [place] % (Auto) 10.5 H (0.0-7.3) % Eos % (Auto) 2.1 (0.0-4.3) % Baso % (Auto) 0.5 (0.0-1.8) % Lymph # (Auto) 2.0 (1.2-5.4) K/mm3 [place] # (Auto) 0.7 (0.0-0.8) K/mm3 Eos # (Auto) 0.1 (0.0-0.4) K/mm3 Baso # (Auto) 0.0 (0.0-0.1) K/mm3 Seg Neutrophils % 58.2 (40.0-70.0) % Seg Neutrophils # 4.1 (1.8-7.7) K/mm3 PT 13.3 (12.2-14.9) Sec. INR 0.96 (0.87-1.13) APTT 30.3 (24.2-36.6) Sec. Thrombin Time 17.4 (15.1-19.6) Sec. Sodium (137-145) mmol/L Potassium (3.6-5.0) mmol/L Chloride (98-107) mmol/L Carbon Dioxide (22-30) mmol/L Anion Gap mmol/L BUN (7-17) mg/dL Creatinine (0.6-1.2) mg/dL Estimated GFR ml/min BUN/Creatinine Ratio % Glucose (65-100) mg/dL Calcium (8.4-10.2) mg/dL Total Creatine Kinase 112 (30-135) units/L CK-MB (CK-2) 1.7 (0.0-4.0) ng/mL CK-MB (CK-2) Rel Index 1.5 (0-4) Troponin T < 0.010 (0.00-0.029) ng/mL 01/19/21 Range/Units 18:02 WBC (4.5-11.0) K/mm3 RBC (3.65-5.03) M/mm3 Hgb (10.1-14.3) gm/dl Hct (30.3-42.9) % MCV (79-97) fl MCH (28-32) pg MCHC (30-34) % RDW (13.2-15.2) % Plt Count (140-440) K/mm3 Lymph % (Auto) (13.4-35.0) % [place] % (Auto) (0.0-7.3) % Eos % (Auto) (0.0-4.3) % Baso % (Auto) (0.0-1.8) % Lymph # (Auto) (1.2-5.4) K/mm3 [place] # (Auto) (0.0-0.8) K/mm3 Eos # (Auto) (0.0-0.4) K/mm3 Baso # (Auto) (0.0-0.1) K/mm3 Seg Neutrophils % (40.0-70.0) % Seg Neutrophils # (1.8-7.7) K/mm3 PT (12.2-14.9) Sec. INR (0.87-1.13) APTT (24.2-36.6) Sec. Thrombin Time (15.1-19.6) Sec. Sodium 142 (137-145) mmol/L Potassium 3.5 L (3.6-5.0) mmol/L Chloride 100.5 (98-107) mmol/L Carbon Dioxide 34 H (22-30) mmol/L Anion Gap 11 mmol/L BUN 9 (7-17) mg/dL Creatinine 0.7 (0.6-1.2) mg/dL Estimated GFR > 60 ml/min BUN/Creatinine Ratio 13 % Glucose 90 (65-100) mg/dL Calcium 9.5 (8.4-10.2) mg/dL Total Creatine Kinase (30-135) units/L CK-MB (CK-2) (0.0-4.0) ng/mL CK-MB (CK-2) Rel Index (0-4) Troponin T (0.00-0.029) ng/mL - EKG Data -: EKG Interpreted by Me (artifact noted, no stemi) EKG shows normal: sinus rhythm Rate: normal - Radiology Data Radiology results: report reviewed CT BRAIN: 01/19/2021 INDICATION / CLINICAL INFORMATION: Stroke symptoms. COMPARISON: None available. FINDINGS: BRAIN/INTRACRANIAL STRUCTURES: Unenhanced CT images of the brain demonstrate no evidence of acute abnormality. Ventricles and sulci are normal in size and shape for a patient of this age. There is no evidence of acute large territory ischemic injury, hemorrhage, or mass. There are no abnormal extra-axial fluid collections. Small focal area of left cerebellar cortical encephalomalacia is noted. - Medical Decision Making 70-year-old female presents to the hospital with intermittent neurologic symptoms for the last 2 weeks with progressively worsening unsteady gait for the last 6 days and right-sided sensory symptoms. CT head unremarkable for acute hemorrhage or chronic stroke. Patient has failed attempts at outpatient management with progressive worsening symptoms and is at risk of fall. Patient requires admission for further neurologic work-up. - Thrombolytic Inclusion/Exclusion Thrombolytic Exclusion Criteria: Symptom Onset > 3 Hours Critical Care Time: No Critical care attestation.: If time is entered above; I have spent that time in minutes in the direct care of this critically ill patient, excluding procedure time. ED Disposition Clinical Impression: Unsteady gait when walking, Right sided numbness Disposition: OP ADMIT IP TO THIS HOSP Is pt being admited?: Yes Condition: Stable
[2021-01-19] MEDS ORDERED: ONDANSETRON 4 MG/2 ML INJ IV PRN (18:08)
[2021-01-19] MEDS ORDERED: oxyCODONE /ACETAMINOPHEN 5-325MG TAB PO PRN (18:08)
[2021-01-19] MEDS ORDERED: ACETAMINOPHEN 325 MG TAB PO PRN (18:08)
[2021-01-19] MEDS ORDERED: HYDROmorphone 1 MG/1 ML INJ IV PRN (18:08)
[2021-01-19] MEDS ORDERED: CYCLOBENZAPRINE 10 MG TAB PO PRN (18:10)
[2021-01-19 18:34] LABS: Basophils % (Auto) 0.5 % (0.0-1.8); Eosinophils # (Auto) 0.1 K/mm3 (0.0-0.4); Eosinophils % (Auto) 2.1 % (0.0-4.3); Hematocrit 38.5 % (30.3-42.9); Hemoglobin 12.4 gm/dl (10.1-14.3); Lymphocytes % (Auto) 28.7 % (13.4-35.0); Mean Corpuscular HGB Conc 32 % (30-34); Mean Corpuscular Volume 86 fl (79-97); Monocytes # (Auto) 0.7 K/mm3 (0.0-0.8); Monocytes % (Auto) 10.5 % (0.0-7.3); Platelet Count 212 K/mm3 (140-440); Red Blood Count 4.46 M/mm3 (3.65-5.03); Red Cell Distribution Width 14.3 % (13.2-15.2)
--- NOTE | 2021-01-19 18:46 | Cat Scan Report ---
CT BRAIN: 01/19/2021 INDICATION / CLINICAL INFORMATION: Stroke symptoms. COMPARISON: None available. FINDINGS: BRAIN/INTRACRANIAL STRUCTURES: Unenhanced CT images of the brain demonstrate no evidence of acute abn ormality. Ventricles and sulci are normal in size and shape for a patient of this age. There is no evidence of acute large territory ischemic injury, hemorrhage, or mass. There are no abno rmal extra-axial fluid collections. Small focal area of left cerebellar cortical encephalomalacia is noted. EXTRACRANIAL STRUCTURES: Unremarkable. IMPRESSION: No acute abnormality. All CT scans at this location are performed using dose reduction to ALARA by means of automated expos ure control. Signer Name: Levi Goins MD Signed: 01/19/2021 6:41 PM Workstation Name: [id number]
[2021-01-19 18:50] LABS: INR 0.96 (0.87-1.13)
[2021-01-19 18:51] LABS: Partial Thromboplastin Time 30.3 Sec. (24.2-36.6); Thrombin Time 17.4 Sec. (15.1-19.6)
[2021-01-19 18:52] LABS: Creatine Kinase MB 1.7 ng/mL (0.0-4.0)
[2021-01-19 19:05] LABS: Blood Urea Nitrogen 9 mg/dL (7-17); Calcium 9.5 mg/dL (8.4-10.2); Hemolysis Index 18
[2021-01-19 19:06] LABS: BUN/Creatinine Ratio 13
[2021-01-19] MEDS: ALBUTEROL 2.5 MG/3 ML NEBU IH PRN (19:45)
[2021-01-19] MEDS: ASPIRIN 81 MG TAB CHEW PO SCH (20:21)
--- NOTE | 2021-01-19 20:58 | History and Physical Report ---
History of Present Illness Date of admission: 01/19/21 18:08 Chief complaint: I feel weak and I cannot walk History of present illness: 70 YO Female with Asthma, GERD, HTN, Seasonal Allergies presents to ED for evaluation. Patient reports "I feel weak and I cannot walk". Patient states that she has experienced dizziness, and inability to walk over the past 6 days with worsening symptoms over the same timeframe. Patient acknowledges sudden onset of spinning sensation, nausea shortly after taking a shower. Patient also acknowledges right arm right face and right leg numbness. Patient states that she is unable to move her right leg and is unable to walk, bear weight, or stand. Patient was seen and evaluated by her neurologist and instructed to seek further care at [facility] for further care and evaluation. EMS was notified and upon arrival the patient was found to be in distress and subsequent transported to [facility] for further care and evaluation of the aforementioned symptoms. The patient was seen and evaluated in the emergency department. All lab and imaging studies reviewed. 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 Patient denies fever, chills, chest pain, palpitation, productive cough, skin rash, recent ill contacts, known exposure to COVID-19. No prior admission for review. All medication listed at time of admission has been reconciled. Advanced care planning conducted in ED. Past History Past Medical History: GERD, hypertension, other (See HPI) Past Surgical History: Other (Ovarian cyst, right foot surgery) Social history: . denies: smoking, alcohol abuse Family history: diabetes, hypertension Medications and Allergies Allergies Allergy/AdvReac Type Severity Reaction Status Date / Time No Known Allergies Allergy Verified 11/05/18 12:22 Home Medications Medication Instructions Recorded Confirmed Last Taken Type ALBUTEROL NEB's [Proventil 0.083% 1 dose INHALATION PRN PRN 10/03/15 01/17/19 01/16/19 21:00 History NEBS] NIFEdipine [NIFEdipine ER] 90 mg PO DAILY 10/03/15 01/17/19 01/17/19 09:00 History ProAir HFA Inhaler 2 puff INHALATION PRN PRN 10/03/15 01/08/19 10/02/15 History Cetirizine HCl [ZyrTEC 10mg cap] 10 mg PO DAILY 11/05/18 01/17/19 01/16/19 09:00 History Triamterene [Dyrenium] 50 mg PO DAILY 11/05/18 01/17/19 01/16/19 09:00 History Cyclobenzaprine [Flexeril] 10 mg PO TID PRN #10 tablet 11/18/20 Unknown Rx predniSONE [Deltasone] 20 mg PO DAILY #5 tablet 11/18/20 Unknown Rx Active Meds: Active Medications Acetaminophen (Acetaminophen 325 Mg Tab) 650 mg PO Q4H PRN PRN Reason: Pain MILD(1-3)/Fever >100.5/MATHIS Albuterol (Albuterol 2.5 Mg/3 Ml Nebu) 2.5 mg IH Q4HRT PRN PRN Reason: Shortness Of Breath Last Admin: 01/19/21 19:45 Dose: 2.5 mg Documented by: Aspirin (Aspirin 81 Mg Tab Chew) 243 mg PO QDAY MYCH[facility] Last Admin: 01/19/21 20:21 Dose: 243 mg Documented by: Cetirizine HCl (Cetirizine 10 Mg Tab) 10 mg PO DAILY [facility] Cyclobenzaprine HCl (Cyclobenzaprine 10 Mg Tab) 10 mg PO TID PRN PRN Reason: Muscle Spasm Hydromorphone HCl (Hydromorphone 1 Mg/1 Ml Inj) 0.5 mg IV Q12H PRN PRN Reason: Pain , Severe (7-10) Miscellaneous Medication (Triamterene [Dyrenium]) 50 mg PO DAILY [facility] Nifedipine (Nifedipine Xl 90 Mg Tab) 90 mg PO DAILY [facility] Ondansetron HCl (Ondansetron 4 Mg/2 Ml Inj) 4 mg IV Q8H PRN PRN Reason: Nausea And Vomiting Oxycodone/Acetaminophen (Oxycodone /Acetaminophen 5-325mg Tab) 1 tab PO Q12H PRN PRN Reason: Pain, Moderate (4-6) Prednisone (Prednisone 20 Mg Tab) 20 mg PO DAILY [facility] Sodium Chloride (Sodium Chloride 0.9% 10 Ml Flush Syringe) 10 ml IV BID [facility] Sodium Chloride (Sodium Chloride 0.9% 10 Ml Flush Syringe) 10 ml IV PRN PRN PRN Reason: LINE FLUSH Review of Systems Constitutional: weakness, other (Dizziness,) Ears, nose, mouth and throat: no ear pain, no tinnitis, no decreased hearing Breasts: no change in shape, no swelling, no mass Cardiovascular: no orthopnea, no palpitations, no rapid/irregular heart beat Respiratory: no cough, no excessive sputum Gastrointestinal: no abdominal pain, no vomiting, no change in bowel habits Genitourinary Female: no pelvic pain Rectal: no pain, no incontinence, no bleeding Musculoskeletal: no neck stiffness, no shooting arm pain, no low back pain, no leg numbness/tingling Integumentary: no rash, no redness, no jaundice Neurological: weakness, gait dysfunction, no seizures, no syncope, no tremors Psychiatric: no anxiety, no change in sleep habits, no sleep disturbances, no insomnia Endocrine: no cold intolerance, no heat intolerance, no polyphagia, no polydipsia, no polyuria Hematologic/Lymphatic: no easy bruising, no easy bleeding Allergic/Immunologic: no urticaria, no wheezing Exam - Constitutional Vitals: Temp Pulse Resp BP Pulse Ox 98 F 72 20 168/92 95 01/19/21 16:53 01/19/21 19:46 01/19/21 19:46 01/19/21 16:53 01/19/21 18:15 General appearance: Present: mild distress - EENT Eyes: Present: PERRL ENT: hearing intact, clear oral mucosa - Neck Neck: Present: supple, normal ROM - Respiratory Respiratory effort: normal Respiratory: bilateral: CTA - Cardiovascular Heart Sounds: Present: S1 & S2. Absent: rub, click - Extremities Extremities: pulses symmetrical, No edema Peripheral Pulses: within normal limits - Abdominal General gastrointestinal: Present: soft, non-tender, non-distended, normal bowel sounds Female genitourinary: Present: normal - Integumentary Integumentary: Present: clear, warm, dry - Musculoskeletal Musculoskeletal: gait normal, strength equal bilaterally - Psychiatric Psychiatric: appropriate mood/affect, intact judgment & insight - Neurologic Neurologic: CNII-XII intact, moves all extremities HEART Score - HEART Score Troponin: Troponin T < 0.010 ng/mL (0.00-0.029) 01/19/21 18:02 Results - Labs CBC & Chem 7: 01/19/21 18:02 01/19/21 18:02 Labs: Abnormal lab results 01/19/21 01/19/21 Range/Units 18:02 18:02 [place] % (Auto) 10.5 H (0.0-7.3) % Potassium 3.5 L (3.6-5.0) mmol/L Carbon Dioxide 34 H (22-30) mmol/L Assessment and Plan - Patient Problems (1) Cerebellar ataxia Current Visit: Yes Status: Acute Plan to address problem: CT head, neurology team consulted, neuro check, seizure precautions, further imaging as per neurology team recommendations. (2) Hypertension Current Visit: Yes Status: Acute Qualifiers: Hypertension type: primary hypertension Qualified Code(s): I10 - Essential (primary) hypertension Plan to address problem: Monitor blood pressure every shift, continue medical management (3) GERD (gastroesophageal reflux disease) Current Visit: Yes Status: Acute Qualifiers: Esophagitis presence: without esophagitis Qualified Code(s): K21.9 - Gastro-esophageal reflux disease without esophagitis Plan to address problem: PPI therapy, supportive care (4) DVT prophylaxis Current Visit: Yes Status: Acute Plan to address problem: SCD to bilateral lower extremities while in bed, prophylactic anticoagulation (5) Advance care planning Current Visit: Yes Status: Acute Plan to address problem: Disease education conducted, care plan discussed, diagnosis discussed, prognosis discussed, patient is full code, patient knowledges understanding and agree with care plan, +30 minutes.
[2021-01-20 06:06] LABS: Basophils % (Auto) 0.6 % (0.0-1.8); Eosinophils # (Auto) 0.2 K/mm3 (0.0-0.4); Eosinophils % (Auto) 2.7 % (0.0-4.3); Hematocrit 33.4 % (30.3-42.9); Hemoglobin 11.4 gm/dl (10.1-14.3); Lymphocytes # (Auto) 2.2 K/mm3 (1.2-5.4); Lymphocytes % (Auto) 32.7 % (13.4-35.0); Mean Corpuscular HGB Conc 34 % (30-34); Mean Corpuscular Volume 85 fl (79-97); Monocytes # (Auto) 0.8 K/mm3 (0.0-0.8); Platelet Count 173 K/mm3 (140-440); Red Blood Count 3.95 M/mm3 (3.65-5.03); Red Cell Distribution Width 13.9 % (13.2-15.2)
[2021-01-20 06:19] LABS: Alanine Aminotransferase 9 units/L (7-56); Albumin 3.4 g/dL (3.9-5); Blood Urea Nitrogen 9 mg/dL (7-17); Calcium 8.5 mg/dL (8.4-10.2); Hemolysis Index 3
[2021-01-20 06:24] LABS: BUN/Creatinine Ratio 13
--- NOTE | 2021-01-20 08:05 | Consultation ---
History of Present Illness Consult date: 01/20/21 Reason for Consult: weak and unsteadyX6 days History of present illness: I feel weak and I cannot walk History of present illness: 70 YO Female with Asthma, GERD, HTN, Seasonal Allergies presents to ED for evaluation. Patient reports "I feel weak and I cannot walk". Patient states that she has experienced dizziness, and inability to walk over the past 6 days with worsening symptoms over the same timeframe. Patient acknowledges sudden onset of spinning sensation, nausea shortly after taking a shower. Patient also acknowledges right arm right face and right leg numbness. Patient states that she is unable to move her right leg and is unable to walk, bear weight, or stand that is started last frieday then got better !!! Patient was seen and evaluated by her neurologist and instructed to seek further care at [facility] for further care and evaluation. EMS was notified and upon arrival the patient was found to be in distress and subsequent transported to [facility] for further care and evaluation of the aforementioned symptoms. The patient was seen and evaluated in the emergency department. All lab and imaging studies reviewed. Patient denies fever, chills, chest pain, palpitation, productive cough, skin rash, recent ill contacts, known exposure to COVID-19. No prior admission for review. All medication listed at time of admission has been reconciled. Advanced care planning conducted in ED. -In ER CT brain is unremarkable. Past History Past Medical History: GERD, hypertension, other (See HPI) Past Surgical History: Other (Ovarian cyst, right foot surgery) Social history: . denies: smoking, alcohol abuse Family history: diabetes, hypertension Medications and Allergies Allergies Allergy/AdvReac Type Severity Reaction Status Date / Time No Known Allergies Allergy Verified 11/05/18 12:22 Home Medications Medication Instructions Recorded Confirmed Last Taken Type ALBUTEROL NEB's [Proventil 0.083% 1 dose INHALATION PRN PRN 10/03/15 01/17/19 01/16/19 21:00 History NEBS] NIFEdipine [NIFEdipine ER] 90 mg PO DAILY 10/03/15 01/17/19 01/17/19 09:00 History ProAir HFA Inhaler 2 puff INHALATION PRN PRN 10/03/15 01/08/19 10/02/15 History Cetirizine HCl [ZyrTEC 10mg cap] 10 mg PO DAILY 11/05/18 01/17/19 01/16/19 09:00 History Triamterene [Dyrenium] 50 mg PO DAILY 11/05/18 01/17/19 01/16/19 09:00 History Cyclobenzaprine [Flexeril] 10 mg PO TID PRN #10 tablet 11/18/20 Unknown Rx predniSONE [Deltasone] 20 mg PO DAILY #5 tablet 11/18/20 Unknown Rx Active Meds: Active Medications Acetaminophen (Acetaminophen 325 Mg Tab) 650 mg PO Q4H PRN PRN Reason: Pain MILD(1-3)/Fever >100.5/MATHIS Albuterol (Albuterol 2.5 Mg/3 Ml Nebu) 2.5 mg IH Q4HRT PRN PRN Reason: Shortness Of Breath Last Admin: 01/19/21 19:45 Dose: 2.5 mg Documented by: Aspirin (Aspirin 81 Mg Tab Chew) 243 mg PO QDAY MYCHAL Last Admin: 01/19/21 20:21 Dose: 243 mg Documented by: Cetirizine HCl (Cetirizine 10 Mg Tab) 10 mg PO DAILY [facility] Cyclobenzaprine HCl (Cyclobenzaprine 10 Mg Tab) 10 mg PO TID PRN PRN Reason: Muscle Spasm Hydromorphone HCl (Hydromorphone 1 Mg/1 Ml Inj) 0.5 mg IV Q12H PRN PRN Reason: Pain , Severe (7-10) Miscellaneous Medication (Triamterene [Dyrenium]) 50 mg PO DAILY [facility] Nifedipine (Nifedipine Xl 90 Mg Tab) 90 mg PO DAILY [facility] Ondansetron HCl (Ondansetron 4 Mg/2 Ml Inj) 4 mg IV Q8H PRN PRN Reason: Nausea And Vomiting Oxycodone/Acetaminophen (Oxycodone /Acetaminophen 5-325mg Tab) 1 tab PO Q12H PRN PRN Reason: Pain, Moderate (4-6) Prednisone (Prednisone 20 Mg Tab) 20 mg PO DAILY [facility] Sodium Chloride (Sodium Chloride 0.9% 10 Ml Flush Syringe) 10 ml IV BID [facility] Sodium Chloride (Sodium Chloride 0.9% 10 Ml Flush Syringe) 10 ml IV PRN PRN PRN Reason: LINE FLUSH Review of Systems Constitutional: weakness, other (Dizziness,) Ears, nose, mouth and throat: no ear pain, no tinnitis, no decreased hearing Breasts: no change in shape, no swelling, no mass Cardiovascular: no orthopnea, no palpitations, no rapid/irregular heart beat Respiratory: no cough, no excessive sputum Gastrointestinal: no abdominal pain, no vomiting, no change in bowel habits Genitourinary Female: no pelvic pain Rectal: no pain, no incontinence, no bleeding Musculoskeletal: no neck stiffness, no shooting arm pain, no low back pain, no leg numbness/tingling Integumentary: no rash, no redness, no jaundice Neurological: weakness, gait dysfunction, no seizures, no syncope, no tremors Psychiatric: no anxiety, no change in sleep habits, no sleep disturbances, no insomnia Endocrine: no cold intolerance, no heat intolerance, no polyphagia, no polydipsia, no polyuria Hematologic/Lymphatic: no easy bruising, no easy bleeding Allergic/Immunologic: no urticaria, no wheezing Past History Past Medical History: GERD, hypertension, other (See HPI) Past Surgical History: Other (Ovarian cyst, right foot surgery) Social history: . denies: smoking, alcohol abuse Family history: diabetes, hypertension Medications and Allergies Allergies Allergy/AdvReac Type Severity Reaction Status Date / Time No Known Allergies Allergy Verified 11/05/18 12:22 Home Medications Medication Instructions Recorded Confirmed Last Taken Type ALBUTEROL NEB's [Proventil 0.083% 1 dose INHALATION PRN PRN 10/03/15 01/17/19 01/16/19 21:00 History NEBS] NIFEdipine [NIFEdipine ER] 90 mg PO DAILY 10/03/15 01/17/19 01/17/19 09:00 History ProAir HFA Inhaler 2 puff INHALATION PRN PRN 10/03/15 01/08/19 10/02/15 History Cetirizine HCl [ZyrTEC 10mg cap] 10 mg PO DAILY 11/05/18 01/17/19 01/16/19 09:00 History Triamterene [Dyrenium] 50 mg PO DAILY 11/05/18 01/17/19 01/16/19 09:00 History Cyclobenzaprine [Flexeril] 10 mg PO TID PRN #10 tablet 11/18/20 Unknown Rx predniSONE [Deltasone] 20 mg PO DAILY #5 tablet 11/18/20 Unknown Rx Active Meds: Active Medications Acetaminophen (Acetaminophen 325 Mg Tab) 650 mg PO Q4H PRN PRN Reason: Pain MILD(1-3)/Fever >100.5/MATHIS Albuterol (Albuterol 2.5 Mg/3 Ml Nebu) 2.5 mg IH Q4HRT PRN PRN Reason: Shortness Of Breath Last Admin: 01/19/21 19:45 Dose: 2.5 mg Documented by: Aspirin (Aspirin 81 Mg Tab Chew) 243 mg PO QDAY [facility] Last Admin: 01/19/21 20:21 Dose: 243 mg Documented by: Cetirizine HCl (Cetirizine 10 Mg Tab) 10 mg PO DAILY [facility] Cyclobenzaprine HCl (Cyclobenzaprine 10 Mg Tab) 10 mg PO TID PRN PRN Reason: Muscle Spasm Hydromorphone HCl (Hydromorphone 1 Mg/1 Ml Inj) 0.5 mg IV Q12H PRN PRN Reason: Pain , Severe (7-10) Miscellaneous Medication (Triamterene [Dyrenium]) 50 mg PO DAILY [facility] Nifedipine (Nifedipine Xl 90 Mg Tab) 90 mg PO DAILY [facility] Ondansetron HCl (Ondansetron 4 Mg/2 Ml Inj) 4 mg IV Q8H PRN PRN Reason: Nausea And Vomiting Oxycodone/Acetaminophen (Oxycodone /Acetaminophen 5-325mg Tab) 1 tab PO Q12H PRN PRN Reason: Pain, Moderate (4-6) Prednisone (Prednisone 20 Mg Tab) 20 mg PO DAILY [facility] Sodium Chloride (Sodium Chloride 0.9% 10 Ml Flush Syringe) 10 ml IV BID [facility] Last Admin: 01/19/21 22:43 Dose: 10 ml Documented by: Sodium Chloride (Sodium Chloride 0.9% 10 Ml Flush Syringe) 10 ml IV PRN PRN PRN Reason: LINE FLUSH Physical Examination - Vital Signs Vital Signs: Vital Signs Temp Pulse Resp BP Pulse Ox 98 F 86 18 168/92 98 01/19/21 16:53 01/19/21 16:53 01/19/21 16:53 01/19/21 16:53 01/19/21 16:53 - Constitutional General appearance: comfortable - EENT EENT: Present: PERRL, mucous membranes moist - Respiratory Respiratory: Present: chest non-tender, lungs clear, rhonchi - Cardiovascular Cardiovascular: Present: regular rate, normal S1, normal S2 Extremities: Present: no peripheral edema bilatateraly, no clubbing, cyanosis - Gastrointestinal Gastrointestinal: Present: normoactive bowel sounds - Integumentary Integumentary: Present: normal - Neurologic Cranial nerve examination: PERRL, EOMI, intact Speech examination: intact Detailed motor examination: grossly full strength in - Level of Consciousness 1a. Level of Consciousness: alert/keenly responsive - LOC Questions 1b. LOC Questions: answers both correctly - LOC Command 1c. LOC Commands: performs tasks correctly - Best Gaze 2. Best Gaze: normal - Visual 3. Visual: no visual loss - Facial Palsy 4. Facial Palsy: normal symmetrical movement - Motor Arm 5a. Motor Arm Left: no drift 5b. Motor Arm Right: no drift - Motor Leg 6a. Motor Leg Left: no drift 6b. Motor Leg Right: no drift - Limb Ataxia 7. Limb Ataxia: absent - Sensory 8. Sensory: normal - Best Language 9. Best Language: no aphasia - Dysarthria 10. Dysarthria: normal - Extinction and Inattention 11. Extinction/Inattention: no abnormality - Scoring Total Score: 0 Stroke Severity: No Stroke Symptoms Results - Laboratory Findings CBC and BMP: 01/20/21 05:08 01/20/21 05:08 Abnormal Lab Findings: Abnormal Labs 01/19/21 01/19/21 01/20/21 18:02 18:02 05:08 [place] % (Auto) 10.5 H 12.0 H Potassium 3.5 L Carbon Dioxide 34 H Albumin 01/20/21 05:08 [place] % (Auto) Potassium 2.8 L* Carbon Dioxide Albumin 3.4 L Assessment and Plan Assessment and Plan # hx of vertigo intermittent R/O central process -she is complaining of intermittent right side numbness ? exam is none focal today -CT head is unremarkable -ASA and Lipitor started in ER -NIH#0 -Brain MRI is pending -Echo pending -LDL# pending -Antivert prn # Hypertension # hypokalemia -Monitor blood pressure every shift, continue medical management # hypokalemia -corrected # GERD (gastroesophageal reflux disease) -PPI therapy, supportive care # DVT prophylaxis -SCD to bilateral lower extremities while in bed, -prophylactic anticoagulation # Advance care planning -Disease education conducted, care plan discussed, diagnosis discussed, prognosis discussed, patient is full code, patient knowledges understanding and agree with care plan, +30 minutes. D/W pt. will follow
[2021-01-20] MEDS ORDERED: NON-FORMULARY EACH (Cetirizine Hcl [Zyrtec 10mg Cap] 10 MG Capsule) PO SCH (10:00)
[2021-01-20] MEDS ORDERED: TRIAMTERENE 50 MG PO SCH (10:00)
[2021-01-20] MEDS: ASPIRIN 81 MG TAB CHEW PO SCH (11:35)
[2021-01-20] MEDS: predniSONE 20 MG TAB PO SCH (11:35)
[2021-01-20] MEDS: POTASSIUM CHLORIDE ER 20 MEQ TAB PO SCH (11:35)
[2021-01-20] MEDS: POTASSIUM CHLORIDE 10 MEQ 10 MEQ/100 ML BAG IV SCH ×2 (11:36→12:42)
[2021-01-20] MEDS: NIFEdipine XL 90 MG TAB PO SCH (12:57)
[2021-01-20] MEDS: CETIRIZINE 10 MG TAB PO SCH (12:57)
--- NOTE | 2021-01-20 14:12 | Progress Note ---
Assessment and Plan Assessment and plan: 70 YO Female with Asthma, GERD, HTN, Seasonal Allergies presents to ED for evaluation. Patient reports "I feel weak and I cannot walk". Patient states that she has experienced dizziness, and inability to walk over the past 6 days with worsening symptoms over the same timeframe. Patient acknowledges sudden onset of spinning sensation, nausea shortly after taking a shower. Patient also acknowledges right arm right face and right leg numbness. Patient states that she is unable to move her right leg and is unable to walk, bear weight, or stand. Patient was seen and evaluated by her neurologist and instructed to seek further care at [facility] for further care and evaluation. EMS was notified and upon arrival the patient was found to be in distress and subsequent transported to [facility] for further care and evaluation of the aforementioned symptoms. The patient was seen and evaluated in the emergency department. All lab and imaging studies reviewed. 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 Patient denies fever, chills, chest pain, palpitation, productive cough, skin rash, recent ill contacts, known exposure to COVID-19. No prior admission for review. All medication listed at time of admission has been reconciled. Advanced care planning conducted in ED. CT Head: negative Brain MRI is pending -Echo pending -LDL# pending 01/20: Per Neurology, continue Antivert. Replace potassium and follow labs, CHECK Magnesium level. (1) Cerebellar ataxia Current Visit: Yes Status: Acute Plan to address problem: CT head, neurology team consulted, neuro check, seizure precautions, further imaging as per neurology team recommendations. (2) Hypertension Current Visit: Yes Status: Acute Qualifiers: Hypertension type: primary hypertension Qualified Code(s): I10 - Essential (primary) hypertension Plan to address problem: Monitor blood pressure every shift, continue medical management (3) GERD (gastroesophageal reflux disease) Current Visit: Yes Status: Acute Qualifiers: Esophagitis presence: without esophagitis Qualified Code(s): K21.9 - Gastro-esophageal reflux disease without esophagitis Plan to address problem: PPI therapy, supportive care (4) Hypokalemia (5) DVT prophylaxis Current Visit: Yes Status: Acute Plan to address problem: SCD to bilateral lower extremities while in bed, prophylactic anticoagulation (6) Advance care planning Current Visit: Yes Status: Acute Plan to address problem: Disease education conducted, care plan discussed, diagnosis discussed, prognosis discussed, patient is full code, patient knowledges understanding and agree with care plan, +30 minutes. History Interval history: Patient seen and examined, resting comfortable, sitting up. Hospitalist Physical - Physical exam Narrative exam: General appearance: Present: No distress - EENT Eyes: Present: PERRL ENT: hearing intact, clear oral mucosa - Neck Neck: Present: supple, normal ROM - Respiratory Respiratory effort: normal Respiratory: bilateral: CTA - Cardiovascular Heart Sounds: Present: S1 & S2. Absent: rub, click - Extremities Extremities: pulses symmetrical, No edema Peripheral Pulses: within normal limits - Abdominal General gastrointestinal: Present: soft, non-tender, non-distended, normal bowel sounds Female genitourinary: Present: normal - Integumentary Integumentary: Present: clear, warm, dry - Musculoskeletal Musculoskeletal: gait normal, strength equal bilaterally - Psychiatric Psychiatric: appropriate mood/affect, intact judgment & insight - Neurologic Neurologic: CNII-XII intact, moves all extremities - Constitutional Vitals: Temp Pulse Resp BP Pulse Ox 98 F 62 19 120/61 99 01/19/21 16:53 01/20/21 05:26 01/20/21 05:26 01/20/21 05:26 01/20/21 05:26 General appearance: Present: mild distress HEART Score - HEART Score Troponin: Troponin T < 0.010 ng/mL (0.00-0.029) 01/19/21 18:02 Results - Labs CBC & Chem 7: 01/20/21 05:08 01/20/21 05:08 Labs: Laboratory Last Values WBC 6.7 K/mm3 (4.5-11.0) 01/20/21 05:08 RBC 3.95 M/mm3 (3.65-5.03) 01/20/21 05:08 Hgb 11.4 gm/dl (10.1-14.3) 01/20/21 05:08 Hct 33.4 % (30.3-42.9) 01/20/21 05:08 MCV 85 fl (79-97) 01/20/21 05:08 MCH 29 pg (28-32) 01/20/21 05:08 MCHC 34 % (30-34) 01/20/21 05:08 RDW 13.9 % (13.2-15.2) 01/20/21 05:08 Plt Count 173 K/mm3 (140-440) 01/20/21 05:08 Lymph % (Auto) 32.7 % (13.4-35.0) 01/20/21 05:08 Dickens % (Auto) 12.0 % (0.0-7.3) H 01/20/21 05:08 Eos % (Auto) 2.7 % (0.0-4.3) 01/20/21 05:08 Baso % (Auto) 0.6 % (0.0-1.8) 01/20/21 05:08 Lymph # (Auto) 2.2 K/mm3 (1.2-5.4) 01/20/21 05:08 Dickens # (Auto) 0.8 K/mm3 (0.0-0.8) 01/20/21 05:08 Eos # (Auto) 0.2 K/mm3 (0.0-0.4) 01/20/21 05:08 Baso # (Auto) 0.0 K/mm3 (0.0-0.1) 01/20/21 05:08 Seg Neutrophils % 52.0 % (40.0-70.0) 01/20/21 05:08 Seg Neutrophils # 3.5 K/mm3 (1.8-7.7) 01/20/21 05:08 PT 13.3 Sec. (12.2-14.9) 01/19/21 18:02 INR 0.96 (0.87-1.13) 01/19/21 18:02 APTT 30.3 Sec. (24.2-36.6) 01/19/21 18:02 Thrombin Time 17.4 Sec. (15.1-19.6) 01/19/21 18:02 Sodium 140 mmol/L (137-145) 01/20/21 05:08 Potassium 2.8 mmol/L (3.6-5.0) L* 01/20/21 05:08 Chloride 100.3 mmol/L (98-107) 01/20/21 05:08 Carbon Dioxide 30 mmol/L (22-30) 01/20/21 05:08 Anion Gap 13 mmol/L 01/20/21 05:08 BUN 9 mg/dL (7-17) 01/20/21 05:08 Creatinine 0.7 mg/dL (0.6-1.2) 01/20/21 05:08 Estimated GFR > 60 ml/min 01/20/21 05:08 BUN/Creatinine Ratio 13 % 01/20/21 05:08 Glucose 100 mg/dL (65-100) 01/20/21 05:08 Calcium 8.5 mg/dL (8.4-10.2) 01/20/21 05:08 Total Bilirubin 0.40 mg/dL (0.1-1.2) 01/20/21 05:08 AST 15 units/L (5-40) 01/20/21 05:08 ALT 9 units/L (7-56) 01/20/21 05:08 Alkaline Phosphatase 65 units/L (35-129) 01/20/21 05:08 Total Creatine Kinase 112 units/L (30-135) 01/19/21 18:02 CK-MB (CK-2) 1.7 ng/mL (0.0-4.0) 01/19/21 18:02 CK-MB (CK-2) Rel Index 1.5 (0-4) 01/19/21 18:02 Troponin T < 0.010 ng/mL (0.00-0.029) 01/19/21 18:02 Total Protein 7.3 g/dL (6.3-8.2) 01/20/21 05:08 Albumin 3.4 g/dL (3.9-5) L 01/20/21 05:08 Albumin/Globulin Ratio 0.9 % 01/20/21 05:08 Active Medications - Current Medications Current Medications: Generic Name Dose Route Start Last Admin Trade Name Freq PRN Reason Stop Dose Admin Acetaminophen 650 mg 01/19/21 18:08 Acetaminophen 325 Mg Tab PO Q4H PRN Pain MILD(1-3)/Fever >100.5/MATHIS Albuterol 2.5 mg 01/19/21 18:08 01/19/21 19:45 Albuterol 2.5 Mg/3 Ml Nebu IH 2.5 mg Q4HRT PRN Administration Shortness Of Breath Aspirin 243 mg 01/19/21 20:00 01/20/21 11:35 Aspirin 81 Mg Tab Chew PO 243 mg QDAY MYCHAL Administration Atorvastatin Calcium 40 mg 01/20/21 22:00 Atorvastatin 40 Mg Tab PO QHS MYCHAL Cetirizine HCl 10 mg 01/20/21 10:00 01/20/21 12:57 Cetirizine 10 Mg Tab PO 10 mg DAILY MYCHAL Administration Cyclobenzaprine HCl 10 mg 01/19/21 18:10 Cyclobenzaprine 10 Mg Tab PO TID PRN Muscle Spasm Hydromorphone HCl 0.5 mg 01/19/21 18:08 Hydromorphone 1 Mg/1 Ml Inj IV Q12H PRN Pain , Severe (7-10) Miscellaneous Medication 50 mg 01/20/21 10:00 01/20/21 11:38 Triamterene [Dyrenium] PO Not Given DAILY [facility] Nifedipine 90 mg 01/20/21 10:00 01/20/21 12:57 Nifedipine Xl 90 Mg Tab PO 90 mg DAILY MYCHAL Administration Ondansetron HCl 4 mg 01/19/21 18:08 Ondansetron 4 Mg/2 Ml Inj IV Q8H PRN Nausea And Vomiting Oxycodone/Acetaminophen 1 tab 01/19/21 18:08 Oxycodone /Acetaminophen 5-325mg Tab PO Q12H PRN Pain, Moderate (4-6) Potassium Chloride 20 meq 01/20/21 10:00 01/20/21 11:35 Potassium Chloride Er 20 Meq Tab PO 20 meq QDAY MYCHAL Administration Prednisone 20 mg 01/20/21 10:00 01/20/21 11:35 Prednisone 20 Mg Tab PO 20 mg DAILY MYCHAL Administration Sodium Chloride 10 ml 01/19/21 22:00 01/20/21 11:37 Sodium Chloride 0.9% 10 Ml Flush Syringe IV 10 ml BID MYCHAL Administration Sodium Chloride 10 ml 01/19/21 18:08 Sodium Chloride 0.9% 10 Ml Flush Syringe IV PRN PRN LINE FLUSH
[2021-01-20] MEDS: ALBUTEROL 2.5 MG/3 ML NEBU IH PRN (21:52)
[2021-01-21 06:52] LABS: Blood Urea Nitrogen 10 mg/dL (7-17); Calcium 9.5 mg/dL (8.4-10.2); Hemolysis Index 2
[2021-01-21 06:56] LABS: BUN/Creatinine Ratio 17
--- NOTE | 2021-01-21 10:13 | Magnetic Resonance Report ---
MRI BRAIN 01/21/2021 INDICATION / CLINICAL INFORMATION: CVA, WEAKNESS. TECHNIQUE: Multiplanar, multisequence MR images of the brain were obtained. COMPARISON: None available. FINDINGS: BRAIN / INTRACRANIAL CONTENTS: Unenhanced MR images of the brain were obtained. There is a 1 cm somewhat linear area of increased diffusion weighted signal in the left posterolatera l medulla (diffusion weighted image 6). There is no definite decreased ADC signal, although small les ions in this area can be difficult to correlate on ADC image. No other areas of abnormal diffusion we ighted signal are present. There is a 1.5 cm area of chronic left cerebellar cortical encephalomalaci a noted. Ventricles and sulci are normal in size and shape. Normal chronic white matter T2 weighted hyperinten sities are noted. EXTRACRANIAL: Unremarkable CRANIOCERVICAL JUNCTION: No significant abnormality. VASCULAR FLOW-VOIDS: No significant abnormality. IMPRESSION: Left posterior lateral medullary diffusion weighted signal abnormality, without definite ADC signal correlate. This may be an indication of subacute brainstem ischemic change. No other areas of acute or recent ischemic change are noted. No evidence of hemorrhage. Signer Name: Levi Goins MD Signed: 01/21/2021 10:09 AM Workstation Name: [id number]
--- NOTE | 2021-01-21 10:55 | Electrocardiograph Report ---
[facility] Test Date: 2021-01-19 Test Time: 18:39:52 Pat Name: AKIN STOREY Department: Room: B315 Gender: F Outreach Counselor: ASHVIN : 1950 Requested By: KALEE GREGORIO Order Number: [id number] Reading MD: Meryl Nickerson Measurements Intervals [place] Rate: 81 P: 73 TN: 127 QRS: 21 QRSD: 87 T: 40 QT: 384 QTc: 443 Interpretive Statements Sinus rhythm Atrial premature complexes Low voltage, precordial leads No previous ECG available for comparison Electronically Signed On 01-21-2021 10:54:33 EDT by Meryl Nickerson
--- NOTE | 2021-01-21 11:57 | Magnetic Resonance Report ---
MRI CERVICAL SPINE 01/21/2021 INDICATION / CLINICAL INFORMATION: parastheisa upper ext, NECK PAIN AND LT SIDED NUMBNESS. COMPARISON: None available. FINDINGS: GENERAL OBSERVATIONS: Unenhanced MR images of the cervical spine were obtained. There is no evidence of acute abnormality. There is no evidence of spinal cord compression or intrins ic spinal cord abnormality. Multilevel degenerative changes are present as detailed below. HBCPM-DY-TDXPT ANALYSIS: C7-T1: Disc space narrowing and mild diffuse disc bulging, more pronounced on the left than on the ri ght. Left-sided foraminal narrowing is present. C6-7: Mild diffuse disc bulging, slightly more pronounced on the left than on the right. Left-sided f oraminal narrowing is present. C5-6: Disc space narrowing and endplate irregularity, which may be due to prior surgery or degenerati ve change. No evidence of stenosis or nerve root compression. C4-5: Minimal diffuse disc bulging and small central disc protrusion. C3-4: Mild diffuse disc bulging and small central disc protrusion. Mild central canal narrowing with no evidence of lateralization. C2-3: Unremarkable. CRANIO-CERVICAL JUNCTION: Unremarkable. BONE MARROW: Degenerative change. No significant focal abnormality. PARASPINAL SOFT TISSUES: No significant abnormality. Made of a partially empty sella. This is generally considered to be of no clinical significance. IMPRESSION: Multilevel degenerative changes as described above. Left-sided foraminal narrowing at C6-7 and C7-T1 . Signer Name: Levi Goins MD Signed: 01/21/2021 11:53 AM Workstation Name: [id number]
[2021-01-21] MEDS: predniSONE 20 MG TAB PO SCH (12:35)
[2021-01-21] MEDS: CETIRIZINE 10 MG TAB PO SCH (12:36)
[2021-01-21] MEDS: ASPIRIN 81 MG TAB CHEW PO SCH (12:36)
[2021-01-21] MEDS: POTASSIUM CHLORIDE ER 20 MEQ TAB PO SCH (12:37)
--- NOTE | 2021-01-21 14:03 | Progress Note ---
Assessment and Plan Assessment and plan: 70 YO Female with Asthma, GERD, HTN, Seasonal Allergies presents to ED for evaluation. Patient reports "I feel weak and I cannot walk". Patient states that she has experienced dizziness, and inability to walk over the past 6 days with worsening symptoms over the same timeframe. Patient acknowledges sudden onset of spinning sensation, nausea shortly after taking a shower. Patient also acknowledges right arm right face and right leg numbness. Patient states that she is unable to move her right leg and is unable to walk, bear weight, or stand. Patient was seen and evaluated by her neurologist and instructed to seek further care at [facility] for further care and evaluation. EMS was notified and upon arrival the patient was found to be in distress and subsequent transported to [facility] for further care and evaluation of the aforementioned symptoms. The patient was seen and evaluated in the emergency department. All lab and imaging studies reviewed. 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 Patient denies fever, chills, chest pain, palpitation, productive cough, skin rash, recent ill contacts, known exposure to COVID-19. No prior admission for review. All medication listed at time of admission has been reconciled. Advanced care planning conducted in ED. CT Head: negative Brain MRI is pending -Echo pending -LDL# pending 01/20: Per Neurology, continue Antivert. Replace potassium and follow labs, CHECK Magnesium level. 01/21: Patient seen and examined MRI concerning for Brain stem ischemia, CTA ORDER ED. Awaiting PT/OT eval, she also reports initial dysphagia. Will obtain speech eval. Continue ASA AND STATIN. (1) Cerebellar ataxia Current Visit: Yes Status: Acute Plan to address problem: CT head, neurology team consulted, neuro check, seizure precautions, further imaging as per neurology team recommendations. (2) Hypertension Current Visit: Yes Status: Acute Qualifiers: Hypertension type: primary hypertension Qualified Code(s): I10 - Essential (primary) hypertension Plan to address problem: Monitor blood pressure every shift, continue medical management (3) GERD (gastroesophageal reflux disease) Current Visit: Yes Status: Acute Qualifiers: Esophagitis presence: without esophagitis Qualified Code(s): K21.9 - Ga stro-esophageal reflux disease without esophagitis Plan to address problem: PPI therapy, supportive care (4) Hypokalemia (5) DVT prophylaxis Current Visit: Yes Status: Acute Plan to address problem: SCD to bilateral lower extremities while in bed, prophylactic anticoagulation (6) Advance care planning Current Visit: Yes Status: Acute Plan to address problem: Disease education conducted, care plan discussed, diagnosis discussed, prognosis discussed, patient is full code, patient knowledges understanding and agree with care plan, +30 minutes. History Interval history: Patient seen and examined, reports some improvement but still with parasthesia in the Right upper ext and lower ext Hospitalist Physical - Physical exam Narrative exam: General appearance: Present: No distress - EENT Eyes: Present: PERRL ENT: hearing intact, clear oral mucosa - Neck Neck: Present: supple, normal ROM - Respiratory Respiratory effort: normal Respiratory: bilateral: CTA - Cardiovascular Heart Sounds: Present: S1 & S2. Absent: rub, click - Extremities Extremities: pulses symmetrical, No edema Peripheral Pulses: within normal limits - Abdominal General gastrointestinal: Present: soft, non-tender, non-distended, normal bowel sounds Female genitourinary: Present: normal - Integumentary Integumentary: Present: clear, warm, dry - Musculoskeletal Musculoskeletal: gait normal, strength equal bilaterally - Psychiatric Psychiatric: appropriate mood/affect, intact judgment & insight - Neurologic Neurologic: CNII-XII intact, 4/5 on the right upper ext, moves all extremities - Constitutional Vitals: Temp Pulse Resp BP Pulse Ox 98.9 F 94 H 18 136/53 99 01/21/21 10:49 01/21/21 10:49 01/21/21 10:49 01/21/21 10:49 01/21/21 11:24 General appearance: Present: mild distress HEART Score - HEART Score Troponin: Troponin T < 0.010 ng/mL (0.00-0.029) 01/19/21 18:02 Results - Labs CBC & Chem 7: 01/20/21 05:08 01/21/21 05:55 Labs: Laboratory Last Values WBC 6.7 K/mm3 (4.5-11.0) 01/20/21 05:08 RBC 3.95 M/mm3 (3.65-5.03) 01/20/21 05:08 Hgb 11.4 gm/dl (10.1-14.3) 01/20/21 05:08 Hct 33.4 % (30.3-42.9) 01/20/21 05:08 MCV 85 fl (79-97) 01/20/21 05:08 MCH 29 pg (28-32) 01/20/21 05:08 MCHC 34 % (30-34) 01/20/21 05:08 RDW 13.9 % (13.2-15.2) 01/20/21 05:08 Plt Count 173 K/mm3 (140-440) 01/20/21 05:08 Lymph % (Auto) 32.7 % (13.4-35.0) 01/20/21 05:08 Starr % (Auto) 12.0 % (0.0-7.3) H 01/20/21 05:08 Eos % (Auto) 2.7 % (0.0-4.3) 01/20/21 05:08 Baso % (Auto) 0.6 % (0.0-1.8) 01/20/21 05:08 Lymph # (Auto) 2.2 K/mm3 (1.2-5.4) 01/20/21 05:08 Starr # (Auto) 0.8 K/mm3 (0.0-0.8) 01/20/21 05:08 Eos # (Auto) 0.2 K/mm3 (0.0-0.4) 01/20/21 05:08 Baso # (Auto) 0.0 K/mm3 (0.0-0.1) 01/20/21 05:08 Seg Neutrophils % 52.0 % (40.0-70.0) 01/20/21 05:08 Seg Neutrophils # 3.5 K/mm3 (1.8-7.7) 01/20/21 05:08 PT 13.3 Sec. (12.2-14.9) 01/19/21 18:02 INR 0.96 (0.87-1.13) 01/19/21 18:02 APTT 30.3 Sec. (24.2-36.6) 01/19/21 18:02 Thrombin Time 17.4 Sec. (15.1-19.6) 01/19/21 18:02 Sodium 144 mmol/L (137-145) 01/21/21 05:55 Potassium 3.5 mmol/L (3.6-5.0) L D 01/21/21 05:55 Chloride 105.2 mmol/L (98-107) 01/21/21 05:55 Carbon Dioxide 31 mmol/L (22-30) H 01/21/21 05:55 Anion Gap 11 mmol/L 01/21/21 05:55 BUN 10 mg/dL (7-17) 01/21/21 05:55 Creatinine 0.6 mg/dL (0.6-1.2) 01/21/21 05:55 Estimated GFR > 60 ml/min 01/21/21 05:55 BUN/Creatinine Ratio 17 % 01/21/21 05:55 Glucose 88 mg/dL (65-100) 01/21/21 05:55 Calcium 9.5 mg/dL (8.4-10.2) 01/21/21 05:55 Magnesium 2.20 mg/dL (1.7-2.3) 01/20/21 15:08 Total Bilirubin 0.40 mg/dL (0.1-1.2) 01/20/21 05:08 AST 15 units/L (5-40) 01/20/21 05:08 ALT 9 units/L (7-56) 01/20/21 05:08 Alkaline Phosphatase 65 units/L (35-129) 01/20/21 05:08 Total Creatine Kinase 112 units/L (30-135) 01/19/21 18:02 CK-MB (CK-2) 1.7 ng/mL (0.0-4.0) 01/19/21 18:02 CK-MB (CK-2) Rel Index 1.5 (0-4) 01/19/21 18:02 Troponin T < 0.010 ng/mL (0.00-0.029) 01/19/21 18:02 Total Protein 7.3 g/dL (6.3-8.2) 01/20/21 05:08 Albumin 3.4 g/dL (3.9-5) L 01/20/21 05:08 Albumin/Globulin Ratio 0.9 % 01/20/21 05:08 Hamilton/IV: Voiding Method Toilet Active Medications - Current Medications Current Medications: Generic Name Dose Route Start Last Admin Trade Name Freq PRN Reason Stop Dose Admin Acetaminophen 650 mg 01/19/21 18:08 Acetaminophen 325 Mg Tab PO Q4H PRN Pain MILD(1-3)/Fever >100.5/MATHIS Albuterol 2.5 mg 01/19/21 18:08 01/20/21 21:52 Albuterol 2.5 Mg/3 Ml Nebu IH 2.5 mg Q4HRT PRN Administration Shortness Of Breath Aspirin 243 mg 01/19/21 20:00 01/21/21 12:36 Aspirin 81 Mg Tab Chew PO 243 mg QDAY MYCHAL Administration Atorvastatin Calcium 40 mg 01/20/21 22:00 01/20/21 23:03 Atorvastatin 40 Mg Tab PO 40 mg QHS MYCHAL Administration Cetirizine HCl 10 mg 01/20/21 10:00 01/21/21 12:36 Cetirizine 10 Mg Tab PO 10 mg DAILY MYCHAL Administration Cyclobenzaprine HCl 10 mg 01/19/21 18:10 Cyclobenzaprine 10 Mg Tab PO TID PRN Muscle Spasm Hydromorphone HCl 0.5 mg 01/19/21 18:08 Hydromorphone 1 Mg/1 Ml Inj IV Q12H PRN Pain , Severe (7-10) Miscellaneous Medication 50 mg 01/20/21 10:00 01/20/21 11:38 Triamterene [Dyrenium] PO Not Given DAILY [facility] Nifedipine 90 mg 01/20/21 10:00 01/20/21 12:57 Nifedipine Xl 90 Mg Tab PO 90 mg DAILY MYCHAL Administration Ondansetron HCl 4 mg 01/19/21 18:08 Ondansetron 4 Mg/2 Ml Inj IV Q8H PRN Nausea And Vomiting Oxycodone/Acetaminophen 1 tab 01/19/21 18:08 Oxycodone /Acetaminophen 5-325mg Tab PO Q12H PRN Pain, Moderate (4-6) Potassium Chloride 20 meq 01/20/21 10:00 01/21/21 12:37 Potassium Chloride Er 20 Meq Tab PO 20 meq QDAY MYCHAL Administration Prednisone 20 mg 01/20/21 10:00 01/21/21 12:35 Prednisone 20 Mg Tab PO 20 mg DAILY MYCHAL Administration Sodium Chloride 10 ml 01/19/21 22:00 01/20/21 23:03 Sodium Chloride 0.9% 10 Ml Flush Syringe IV 10 ml BID MYCHAL Administration Sodium Chloride 10 ml 01/19/21 18:08 Sodium Chloride 0.9% 10 Ml Flush Syringe IV PRN PRN LINE FLUSH
--- NOTE | 2021-01-21 14:14 | Progress Note ---
Assessment and Plan Assessment and Plan # hx of vertigo intermittent R/O central process -she is complaining of intermittent right side numbness ? exam is none focal today -CT head is unremarkable -ASA and Lipitor started in ER -NIH#0 -Brain MRI is remarkable for left midbrain CVA subacute in nature -Echo is pending -LDL# -Antivert prn -schadual for CTA brain and neck -PT therapy # Hypertension # hypokalemia -Monitor blood pressure every shift, continue medical management # hypokalemia -corrected # GERD (gastroesophageal reflux disease) -PPI therapy, supportive care # DVT prophylaxis -SCD to bilateral lower extremities while in bed, -prophylactic anticoagulation # Advance care planning -Disease education conducted, care plan discussed, diagnosis discussed, prognosis discussed, patient is full code, patient knowledges understanding and agree with care plan, +30 minutes. D/W pt. will follow Subjective Date of service: 01/21/21 Interval history: doing better according to her right side numbness is better she stil with unsteady gait denied vertigo or swallowing difficulty no diplopia or hiccough she discripes slight difficulty with mucous and related that to her hx of asthma MRI brain is noted Objective - Vital Sign Vital Signs - 12hr 01/21/21 01/21/21 01/21/21 04:31 07:01 10:49 Temperature 97.9 F 98.0 F 98.9 F Pulse Rate 73 81 94 H Respiratory 16 18 18 Rate Blood Pressure 127/58 112/64 136/53 O2 Sat by Pulse 95 97 95 Oximetry 01/21/21 11:24 Temperature Pulse Rate Respiratory Rate Blood Pressure O2 Sat by Pulse 99 Oximetry - General Apperance Constitutional: comfortable - EENT EENT: PERRL, mucous membranes moist - Respiratory Respiratory: chest non-tender, lungs clear, rhonchi - Cardiovascular Cardiovascular: regular rate, normal S1, normal S2 Extremities: no peripheral edema bilat, no clubbing, cyanosis - Gastrointestinal Gastrointestinal: normoactive bowel sounds - Integumentary Integumentary: normal - Neurologic Cranial nerve examination: PERRL, EOMI, other (slight decrese right facial sensation) Detailed motor examination: grossly full strength in - Psychiatric Psychiatric: other (does finger to nose gait not tested ) - Laboratory Findings CBC and BMP: 01/20/21 05:08 01/21/21 05:55 Abnormal Lab Findings: Abnormal Labs 01/19/21 01/19/21 01/20/21 18:02 18:02 05:08 Parke % (Auto) 10.5 H 12.0 H Potassium 3.5 L Carbon Dioxide 34 H Albumin 01/20/21 01/21/21 05:08 05:55 Parke % (Auto) Potassium 2.8 L* 3.5 L D Carbon Dioxide 31 H Albumin 3.4 L
[2021-01-21] MEDS: NIFEdipine XL 90 MG TAB PO SCH (17:11)
--- NOTE | 2021-01-21 20:59 | Cat Scan Report ---
CTA NECK WITH CONTRAST 01/21/2021 INDICATION / CLINICAL INFORMATION: cva [id number] 100ml. COMPARISON: None. TECHNIQUE: Routine CTA of the neck is performed. 3-D/MIP reformats were postprocessed. Percentage st enosis is determined by direct quantitative measurements of diseased internal carotid artery diameter compared with normal distal internal carotid artery reference segments or by criteria similar to DEBBIE CET where applicable. All CT scans at this location are performed using CT dose reduction for ALARA b y means of automated exposure control. CONTRAST: 100 ml of Omnipaque 350 FINDINGS: Carotid bifurcations: At the right bifurcation, atherosclerotic narrowing is present, in the range of approximately 60%. On the left, there is no evidence of stenosis. Carotid arteries: Unremarkable Cervical vertebral arteries: The right vertebral artery is unremarkable. The left is only partially o pacified in segments, which may be an indication of recent or prior occlusion. The distal most verteb ral artery appears to be opacified via retrograde flow from the vertebrobasilar junction. Aortic arch: No significant abnormality. None. IMPRESSION: No significant abnormality. Signer Name: Levi Goins MD Signed: 01/21/2021 8:54 PM Workstation Name: [id number]
--- NOTE | 2021-01-21 21:05 | Cat Scan Report ---
CTA HEAD WITH CONTRAST 01/21/2021 HISTORY: CVA. COMPARISON: None. TECHNIQUE: All CT scans at this location are performed using CT dose reduction for ALARA by means of automated exposure control.. 3-D/MIP reformats postprocessed. Percentage stenosis is determined by d irect quantitative measurements of diseased internal carotid artery diameter compared with normal dis esequiel internal carotid artery reference segments or by criteria similar to NASCET where applicable. CONTRAST: 100 ml of Omnipaque 350 FINDINGS: CTA HEAD: Intracranial vertebral arteries: The right vertebral artery is unremarkable. The left vertebral arter y is relatively small, and based on the appearance on the neck CTA images, is not opacified below the level of the skull base, which may be an indication that the distal left vertebral artery opacifies via retrograde flow from the vertebrobasilar junction. Basilar artery: No significant abnormality. Posterior cerebral arteries: No significant abnormality. Intracranial internal carotid arteries: No significant abnormality. Anterior cerebral arteries: No significant abnormality. Middle cerebral arteries: No significant abnormality. Dural venous sinuses:Not optimally opacified. No significant abnormality. Additional findings: None. Signer Name: Levi Goins MD Signed: 01/21/2021 9:01 PM Workstation Name: [id number]
[2021-01-21] MEDS: ALBUTEROL 2.5 MG/3 ML NEBU IH PRN (22:00)
[2021-01-22] MEDS: ASPIRIN 81 MG TAB CHEW PO SCH (09:48)
[2021-01-22] MEDS: POTASSIUM CHLORIDE ER 20 MEQ TAB PO SCH (09:48)
[2021-01-22] MEDS: predniSONE 20 MG TAB PO SCH (09:48)
[2021-01-22] MEDS: CETIRIZINE 10 MG TAB PO SCH (09:48)
[2021-01-22] MEDS: NIFEdipine XL 90 MG TAB PO SCH (09:48)
[2021-01-22 12:26] VITALS: BP 120/55
--- NOTE | 2021-01-22 13:13 | Progress Note ---
Assessment and Plan Assessment and Plan # hx of vertigo intermittent R/O central process -she is complaining of intermittent right side numbness ? 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 pending -Antivert prn -schadual for CTA brain and neck showed no significant abn. -PT therapy # Cervical disc disease -stenosis left C7-8 # Hypertension # hypokalemia -Monitor blood pressure every shift, continue medical management # hypokalemia -corrected # GERD (gastroesophageal reflux disease) -PPI therapy, supportive care # DVT prophylaxis -SCD to bilateral lower extremities while in bed, -prophylactic anticoagulation # Advance care planning -Disease education conducted, care plan discussed, diagnosis discussed, prognosis discussed, patient is full code, patient knowledges understanding and agree with care plan, +30 minutes. PLAN 1- ASA 325 mg daily 2- Lipitor 40 mg 3- Control BP<150/80 4-Pt therapy 5- PCP and neurology follow up 6-check lipid profil 7- stay off work 2-3 week until is stable and able to walk without walker will sign off Subjective Date of service: 01/22/21 Principal diagnosis: weakness and unsteady gait Interval history: doing better according to her right side numbness is better she stil with unsteady gait denied vertigo or swallowing difficulty no diplopia or hiccough she discripes slight difficulty with mucous and related that to her hx of asthma MRI brain is noted Echo is remarkable for 55-60% EF Objective - Vital Sign Vital Signs - 12hr 01/22/21 01/22/21 01/22/21 05:21 07:39 08:58 Temperature 98.0 F 97.9 F Pulse Rate 77 86 Respiratory 18 19 Rate Blood Pressure 107/53 134/67 O2 Sat by Pulse 92 97 98 Oximetry 01/22/21 11:05 Temperature 97.8 F Pulse Rate 76 Respiratory 18 Rate Blood Pressure 120/55 O2 Sat by Pulse 95 Oximetry - General Apperance Constitutional: comfortable - EENT EENT: PERRL, mucous membranes moist - Respiratory Respiratory: chest non-tender, lungs clear, rhonchi - Cardiovascular Cardiovascular: regular rate, normal S1, normal S2 Extremities: no peripheral edema bilat, no clubbing, cyanosis - Gastrointestinal Gastrointestinal: normoactive bowel sounds - Integumentary Integumentary: normal - Neurologic Cranial nerve examination: PERRL, EOMI, intact Speech examination: intact Detailed motor examination: grossly full strength in (slight gait unsteadiness), other - Laboratory Findings CBC and BMP: 01/20/21 05:08 01/21/21 05:55 Abnormal Lab Findings: Abnormal Labs 01/19/21 01/19/21 01/20/21 18:02 18:02 05:08 [place] % (Auto) 10.5 H 12.0 H Potassium 3.5 L Carbon Dioxide 34 H Albumin 01/20/21 01/21/21 05:08 05:55 [place] % (Auto) Potassium 2.8 L* 3.5 L D Carbon Dioxide 31 H Albumin 3.4 L
--- NOTE | 2021-01-22 13:17 | Discharge Summary ---
Providers - Providers Date of Admission: 01/19/21 18:08 Attending physician: GERRY DOCKERY MD 01/19/21 21:26 Consult to Physician [CONS] Routine Comment: Consulting Provider: DANUTA PENNY Physician Instructions: Reason For Exam: Cerebellar ataxia 01/21/21 10:32 Occupational Therapy Evaluate and Treat [CONS] Routine Comment: Reason For Exam: Debility Physical Therapy Evaluation and Treat [CONS] Routine Comment: Reason For Exam: Unsteady Gait Primary care physician: ORA SANON Hospitalization Reason for admission: Ataxia Condition: Stable Hospital course: 70 YO Female with Asthma, GERD, HTN, Seasonal Allergies presents to ED for evaluation. Patient reports "I feel weak and I cannot walk". Patient states that she has experienced dizziness, and inability to walk over the past 6 days with worsening symptoms over the same timeframe. Patient acknowledges sudden onset of spinning sensation, nausea shortly after taking a shower. Patient also acknowledges right arm right face and right leg numbness. Patient states that she is unable to move her right leg and is unable to walk, bear weight, or stand. Patient was seen and evaluated by her neurologist and instructed to seek further care at [facility] for further care and evaluation. EMS was notified and upon arrival the patient was found to be in distress and subsequent transported to [facility] for further care and evaluation of the aforementioned symptoms. The patient was seen and evaluated in the emergency department. All lab and imaging studies reviewed. 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 Patient denies fever, chills, chest pain, palpitation, productive cough, skin rash, recent ill contacts, known exposure to COVID-19. No prior admission for review. All medication listed at time of admission has been reconciled. Advanced care planning conducted in ED. 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 pending -Antivert prn -schadual for CTA brain and neck showed no significant abn. -PT therapy 01/20: Per Neurology, continue Antivert. Replace potassium and follow labs, CHECK Magnesium level. 01/21: Patient seen and examined MRI concerning for Brain stem ischemia, CTA ORDERED. Awaiting PT/OT eval, she also reports initial dysphagia. Will obtain speech eval. Continue ASA AND STATIN. 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 (2) Hypertension Current Visit: Yes Status: Acute Qualifiers: Hypertension type: primary hypertension Qualified Code(s): I10 - Essential (primary) hypertension Plan to address problem: Monitor blood pressure every shift, continue medical management (3) GERD (gastroesophageal reflux disease) Current Visit: Yes Status: Acute Qualifiers: Esophagitis presence: without esophagitis Qualified Code(s): K21.9 - Gastro-esophageal reflux disease without esophagitis Plan to address problem: PPI therapy, supportive care (4) Hypokalemia (6) Advance care planning Current Visit: Yes Status: Acute Plan to address problem: Disease education conducted, care plan discussed, diagnosis discussed, prognosis discussed, patient is full code, patient knowledges understanding and agree with care plan, +30 minutes. (7) Cervical disc disease -stenosis left C7-8 (8) Hypertension # hypokalemia -Monitor blood pressure every shift, continue medical management Disposition: [id number] HOME UNDER HOME [facility] Final Discharge Diagnosis (Prints w/discharge instructions): Subacute brainstem stroke Time spent for discharge: 35 MIN Core Measure Documentation - Palliative Care Palliative Care/ Comfort Measures: Not Applicable - Core Measures Any of the following diagnoses?: stroke - Stroke Discharge Requirements Statin for LDL = or >70 mg/dl on DC: Yes Anticoag for atrial fib/atrial flutter: Not Applicable Antithrombotic for ischemic stroke: Yes Exam - Physical Exam Narrative exam: General appearance: Present: No distress - EENT Eyes: Present: PERRL ENT: hearing intact, clear oral mucosa - Neck Neck: Present: supple, normal ROM - Respiratory Respiratory effort: normal Respiratory: bilateral: CTA - Cardiovascular Heart Sounds: Present: S1 & S2. Absent: rub, click - Extremities Extremities: pulses symmetrical, No edema Peripheral Pulses: within normal limits - Abdominal General gastrointestinal: Present: soft, non-tender, non-distended, normal bowel sounds Female genitourinary: Present: normal - Integumentary Integumentary: Present: clear, warm, dry - Musculoskeletal Musculoskeletal: gait normal, strength equal bilaterally - Psychiatric Psychiatric: appropriate mood/affect, intact judgment & insight - Neurologic Neurologic: CNII-XII intact, 4/5 on the right upper ext, moves all extremities - Constitutional Vitals: Temp Pulse Resp BP Pulse Ox 97.8 F 76 18 120/55 95 01/22/21 11:05 01/22/21 11:05 01/22/21 11:05 01/22/21 11:05 01/22/21 11:05 Plan Activity: advance as tolerated, fall precautions Diet: low fat Special Instructions: record daily weights, record daily BP diary Follow up with: ORA SANON MD [Primary Care Provider] - 7 Days CASSIDY ARROYO MD [Staff Physician] - 7 Days Forms: Work/School Release Form Prescriptions: AtorvaSTATin [Lipitor] 40 mg PO QHS #30 tablet Aspirin 325 mg PO QDAY #30 tablet
== END 2021-01-22 18:43 | disposition home health service (06) | DRG 65 ==
LOC: ED 16:35 → 3A 18:08 → 3B-SURG 01-20 20:07
PROVIDERS: ADMIT Internal Medicine; ATTEND Internal Medicine
DX: I63.9 Cerebral infarction, unspecified (principal); G11.9 Hereditary ataxia, unspecified; J45.909 Unspecified asthma, uncomplicated; K21.9 Gastro-esophageal reflux disease without esophagitis; I10 Essential (primary) hypertension; Z87.891 Personal history of nicotine dependence; Z79.82 Long term (current) use of aspirin; E87.6 Hypokalemia; M48.02 Spinal stenosis, cervical region
CPT/HCPCS: 36415; 70450; 70496; 70498; 70551; 72141; 80048; 80053; 82550; 82553; 83735; 84484; 85025; 85610; 85670; 85730; 93005; 93306; 94640; G0378; A9270-GY; J3480; J7512; Q9967

== ENCOUNTER 2021-04-26 12:59 | Outpatient (CLI) | payer BC, MEDICARE ==
--- NOTE | 2021-04-26 15:47 | Mammography Report ---
DIGITAL SCREENING MAMMOGRAM WITH CAD, 04/26/2021 CLINICAL INFORMATION / INDICATION: Routine screening mammography. Z12.31 TECHNIQUE: Digital bilateral 2D mammography was obtained in the craniocaudal and mediolateral obliqu e projections. This examination was interpreted with the benefit of Computer-Aided Detection analysis . COMPARISON: 04/18/2014 through 05/06/2020. FINDINGS: Breast Density: The breasts are almost entirely fatty. No dominant mass, suspicious calcifications, or architectural distortion in either breast. A small benign intramammary lymph node in the right upper outer quadrant is stable. There are minimal benign breast arterial calcifications bilaterally. IMPRESSION: No mammographic evidence of malignancy. Follow up recommendation: Routine yearly BI-RADS Category 2: Benign. A "normal" or negative report should not discourage follow up or biopsy of a clinically significant f inding. A written summary of these findings will be mailed to the patient. The patient will be entered into a mammography reporting system which will generate a reminder letter for the patient's next appointmen t at the appropriate interval. The [employer] [place] [employer] recommends yearly mammograms starting at age 40 and continuing as l quentin as a woman is in good health. Breast MRI is recommended for women with an approximate 20-25% or greater lifetime risk of breast cancer, including women with a strong family history of breast or ova andreia cancer or who have been treated for Hodgkin's disease. Signer Name: Devang Rouse MD Signed: 04/26/2021 3:43 PM Workstation Name: [id number]
== END 2021-04-26 13:00 | disposition home or self-care (01) ==
LOC: MAMMO 12:59
PROVIDERS: ATTEND Internal Medicine
DX: Z12.31 Encounter for screening mammogram for malignant neoplasm of breast (principal); N63.11 Unspecified lump in the right breast, upper outer quadrant
CPT/HCPCS: 77067